=== PATIENT | female | born 1945 | race Caucasian/White ===

== ENCOUNTER 2021-08-01 08:54 | Inpatient (IN) | payer MEDICARE, MEDICAID ==
[~2021-08-01] VITALS: Ht 149.9 cm; Wt 94.1 kg
[2021-08-01 10:01] LABS: BASOPHILS % 0.3 % (0.0-2.0); EOSINOPHILS % 1.1 % (0.0-5.0); HEMATOCRIT. 47.6 % (36.0-48.0); HEMOGLOBIN. 15.4 g/dL (12.0-16.0); LYMPHOCYTES % 15.1 % (20.0-50.0); MEAN CORPUSCULAR HEMOGLOBIN 29.1 pg (28.0-32.0); MEAN CORPUSCULAR VOLUME 90.2 fL (81.0-99.0); MEAN PLATELET VOLUME 11.2 fl (7.4-10.4); MONOCYTES % 7.9 % (2.0-8.0); NEUTROPHILS % 75.6 % (40.0-76.0); PLATELET 159 x1000/uL (130-400); RED BLOOD CELL COUNT 5.28 mill/uL (4.2-5.4); RED CELL DISTRIBUTION WIDTH 16.6 % (11.6-14.6)
[2021-08-01 10:09] LABS: CHLORIDE 122 mEq/L (98-107)
[2021-08-01 10:13] LABS: ETHANOL BLOOD < 10 mg/dL
[2021-08-01 10:17] LABS: CREATINE KINASE 24 IU/L (26-192)
[2021-08-01] MEDS ORDERED: SODIUM CHLORIDE 0.45% 250 ML IV ONE (12:15)
[2021-08-01 14:13] LABS: CLARITY URINE CLEAR (CLEAR); COLOR URINE YELLOW (YELLOW); KETONES URINE TRACE (NEGATIVE); LEUKOCYTE ESTERASE URINE NEGATIVE (NEGATIVE); NITRITE URINE NEGATIVE (NEGATIVE); OCCULT BLOOD URINE NEGATIVE (NEGATIVE); PH URINE 6.5 (4.5-8.0); PROTEIN URINE NEGATIVE (NEGATIVE); SPECIFIC GRAVITY URINE 1.025 (1.005-1.030)
[2021-08-01 14:33] LABS: *AMPHETAMINES SCREEN URINE NEGATIVE (NEGATIVE)
[2021-08-01 14:34] LABS: *BARBITURATES SCREEN URINE NEGATIVE (NEGATIVE); CANNABINOID URINE SCREEN NEGATIVE (NEGATIVE); METHADONE URINE SCREEN NEGATIVE (NEGATIVE); OPIATES URINE SCREEN NEGATIVE (NEGATIVE); PHENCYCLIDINE URINE SCREEN NEGATIVE (NEGATIVE)
[2021-08-01 14:35] LABS: *BENZODIAZEPINES SCREEN URINE NEGATIVE (NEGATIVE)
[2021-08-01 14:38] LABS: *COCAINE SCREEN URINE NEGATIVE (NEGATIVE)
[2021-08-01] MEDS ORDERED: HYDRALAZINE 20MG/ML VIAL IV NR (16:15)
[2021-08-01] MEDS ORDERED: LEVOFLOXACIN 500MG PREMIX 100 ML IV SCH (16:15)
[2021-08-01] MEDS ORDERED: ACETAMINOPHEN 650MG SUPP PR PRN (17:00)
[2021-08-01] MEDS ORDERED: IPRATROPIUM/ALBUTEROL 0.5-3(2.5)MG/3ML NEB NEB PRN (17:00)
[2021-08-01] MEDS ORDERED: ONDANSETRON HCL 4MG/2ML INJ IV PRN (17:00)
[2021-08-01] MEDS ORDERED: MORPHINE SULFATE 2 MG/ML CPJ (NOT FOR IM USE) IV PRN (17:00)
[2021-08-01] MEDS: DEXTROSE 5% WATER 1,000 ML IV SCH (17:15)
[2021-08-01] MEDS ORDERED: DEXTROSE 50% WATER 50ML SYRINGE IV PRN (17:15)
[2021-08-01 17:33] LABS: PROTHROMBIN TIME 11.1 sec (9.6-11.0)
[2021-08-01] MEDS ORDERED: METRONIDAZOLE 500 MG PREMIX 100 ML IV SCH (18:00)
[2021-08-01 18:31] LABS: BG BASE EXCESS 1.2 mmol/L (-2.0-2.0); BG CARBOXYHEMOGLOBIN 0.4 % (0.5-1.5); BG DEOXYHEMOGLOBIN 3.1 % (0.0-5.0); BG FRACTION INSPIRED OXYGEN 21; BG HCO3 ACT 24.6 mmol/L (22.0-26.0); BG METHEMOGLOBIN 0.4 % (0.0-1.5); BG OXYGEN SATURATION 96.9 % (92.0-98.5); BG OXYHEMOGLOBIN 96.1 % (94.0-97.0); BG PCO2 35.5 mmHg (35.0-45.0); BG PH 7.458 (7.350-7.450); BG PO2 83.9 mmHg (75.0-100.0); BG SAMPLE SITE LEFT RADIAL; BG TOTAL HEMOGLOBIN 15.2 g/dL (12.0-18.0); BG VENT MODE ROOM AIR
[2021-08-01] MEDS: ENOXAPARIN 30MG/0.3ML SYR SUBCUT SCH (20:20)
[2021-08-01] MEDS: FAMOTIDINE 20MG/2ML VIAL IV SCH (20:20)
[2021-08-01] MEDS: INSULIN LISPRO 100 UNITS/ML SUBCUT SCH ×2 (20:21→21:00)
[2021-08-01] MEDS: BLOOD SUGAR DIAGNOSTIC STRIP TEST SCH (21:00)
[2021-08-01 21:39] VITALS: BP 166/89
[2021-08-01] MEDS: LORAZEPAM 2MG/ML CPJ IV PRN (22:25)
[2021-08-02] VITALS: BP 150/70
[2021-08-02] MEDS: DEXTROSE 5% WATER 1,000 ML IV SCH ×3 (02:24→22:03)
[2021-08-02 03:38] VITALS: BP 148/68
[2021-08-02] MEDS: METRONIDAZOLE 500 MG PREMIX 100 ML IV SCH ×3 (04:00→22:02)
[2021-08-02 06:45] LABS: BASOPHILS % 0.2 % (0.0-2.0); EOSINOPHILS % 1.7 % (0.0-5.0); HEMATOCRIT. 43.8 % (36.0-48.0); HEMOGLOBIN. 14.3 g/dL (12.0-16.0); LYMPHOCYTES % 17.4 % (20.0-50.0); MEAN CORPUSCULAR HEMOGLOBIN 29.4 pg (28.0-32.0); MEAN CORPUSCULAR VOLUME 90.1 fL (81.0-99.0); MEAN PLATELET VOLUME 11.7 fl (7.4-10.4); MONOCYTES % 8.3 % (2.0-8.0); NEUTROPHILS % 72.4 % (40.0-76.0); PLATELET 135 x1000/uL (130-400); RED BLOOD CELL COUNT 4.87 mill/uL (4.2-5.4)
[2021-08-02] MEDS: ENOXAPARIN 30MG/0.3ML SYR SUBCUT SCH (06:53)
[2021-08-02] MEDS: BLOOD SUGAR DIAGNOSTIC STRIP TEST SCH ×4 (06:53→21:00)
[2021-08-02] MEDS: INSULIN LISPRO 100 UNITS/ML SUBCUT SCH ×4 (06:53→21:00)
[2021-08-02 07:13] LABS: PROTHROMBIN TIME 11.1 sec (9.6-11.0)
[2021-08-02 07:14] LABS: CHLORIDE 118 mEq/L (98-107)
[2021-08-02 08:00] VITALS: BP 173/86
[2021-08-02] MEDS: HYDRALAZINE 20MG/ML VIAL IV PRN ×2 (09:44→16:08)
[2021-08-02] MEDS: FAMOTIDINE 20MG/2ML VIAL IV SCH (09:44)
[2021-08-02 12:00] VITALS: BP 163/70
[2021-08-02] MEDS: IPRATROPIUM/ALBUTEROL 0.5-3(2.5)MG/3ML NEB NEB SCH ×2 (12:15→20:45)
[2021-08-02] MEDS: LEVOFLOXACIN 500MG PREMIX 100 ML IV SCH (13:31)
[2021-08-02] MEDS: NITROGLYCERIN OINT 1GM/INCH UDPKT TD SCH ×2 (14:08→22:03)
[2021-08-02 16:00] VITALS: BP 164/68
[2021-08-02 20:00] VITALS: BP 151/68
[2021-08-02] MEDS: LORAZEPAM 2MG/ML CPJ IV PRN (22:59)
[2021-08-03] VITALS: BP 117/53
[2021-08-03] MEDS: IPRATROPIUM/ALBUTEROL 0.5-3(2.5)MG/3ML NEB NEB SCH ×4 (01:15→21:46)
[2021-08-03 04:00] VITALS: BP 115/50
[2021-08-03] MEDS: METRONIDAZOLE 500 MG PREMIX 100 ML IV SCH ×3 (04:42→20:00)
[2021-08-03 06:27] LABS: BASOPHILS % 0.2 % (0.0-2.0); EOSINOPHILS % 0.5 % (0.0-5.0); HEMATOCRIT. 42.2 % (36.0-48.0); HEMOGLOBIN. 13.5 g/dL (12.0-16.0); LYMPHOCYTES % 10.2 % (20.0-50.0); MEAN CORPUSCULAR HEMOGLOBIN 29.2 pg (28.0-32.0); MEAN CORPUSCULAR VOLUME 91.1 fL (81.0-99.0); MEAN PLATELET VOLUME 11.1 fl (7.4-10.4); MONOCYTES % 8.2 % (2.0-8.0); NEUTROPHILS % 80.9 % (40.0-76.0); PLATELET 132 x1000/uL (130-400); RED BLOOD CELL COUNT 4.64 mill/uL (4.2-5.4); RED CELL DISTRIBUTION WIDTH 15.9 % (11.6-14.6)
[2021-08-03 06:30] LABS: PROTHROMBIN TIME 11.2 sec (9.6-11.0)
[2021-08-03] MEDS: BLOOD SUGAR DIAGNOSTIC STRIP TEST SCH ×4 (06:36→21:00)
[2021-08-03] MEDS: NITROGLYCERIN OINT 1GM/INCH UDPKT TD SCH ×3 (06:46→22:10)
[2021-08-03 07:00] LABS: CHLORIDE 113 mEq/L (98-107)
[2021-08-03] MEDS: INSULIN LISPRO 100 UNITS/ML SUBCUT SCH ×4 (07:40→21:00)
[2021-08-03 08:00] VITALS: BP 136/61
[2021-08-03] MEDS: FAMOTIDINE 20MG/2ML VIAL IV SCH (08:53)
[2021-08-03] MEDS: DEXTROSE 5% WATER 1,000 ML IV SCH ×2 (08:53→19:15)
[2021-08-03] MEDS ORDERED: PROPOFOL 200MG/20ML VIAL IV ONE (10:37)
[2021-08-03] MEDS ORDERED: FENTANYL CITRATE/PF 50MCG/ML 2ML VIAL ONE (10:40)
[2021-08-03] MEDS ORDERED: LIDOCAINE HCL 1% 20ML VIAL (Pyxis) INJ ONE (10:40)
[2021-08-03] MEDS ORDERED: ONDANSETRON HCL 4MG/2ML INJ ONE (10:40)
[2021-08-03] MEDS ORDERED: DEXAMETHASONE 4MG/ML 1ML VIAL ONE (10:40)
[2021-08-03] MEDS ORDERED: MIDAZOLAM HCL 2 MG/2 ML VIAL ONE (10:41)
[2021-08-03] MEDS ORDERED: KCL 20MEQ/100ML PREMIX 100 ML IV SCH (11:00)
[2021-08-03 12:00] VITALS: BP 169/78
[2021-08-03] MEDS: LEVOFLOXACIN 500MG PREMIX 100 ML IV SCH (12:40)
[2021-08-03] MEDS: HYDRALAZINE 20MG/ML VIAL IV PRN (13:06)
[2021-08-03 16:00] VITALS: BP 136/61
[2021-08-03 20:00] VITALS: BP 140/66
[2021-08-03] MEDS ORDERED: NALOXONE HCL 0.4MG/ML VIAL IV PRN (23:15)
[2021-08-04] VITALS: BP 138/76
[2021-08-04] MEDS: IPRATROPIUM/ALBUTEROL 0.5-3(2.5)MG/3ML NEB NEB SCH ×4 (02:45→20:37)
[2021-08-04 04:00] VITALS: BP 135/81
[2021-08-04] MEDS: METRONIDAZOLE 500 MG PREMIX 100 ML IV SCH ×3 (04:00→20:00)
[2021-08-04] MEDS: DEXTROSE 5% WATER 1,000 ML IV SCH ×2 (05:15→15:15)
[2021-08-04] MEDS: NITROGLYCERIN OINT 1GM/INCH UDPKT TD SCH ×3 (07:08→22:36)
[2021-08-04] MEDS: BLOOD SUGAR DIAGNOSTIC STRIP TEST SCH ×4 (07:10→21:00)
[2021-08-04 07:32] LABS: EOSINOPHILS % 0.1 % (0.0-5.0); HEMATOCRIT. 42.8 % (36.0-48.0); HEMOGLOBIN. 13.8 g/dL (12.0-16.0); LYMPHOCYTES % 7.2 % (20.0-50.0); MEAN CORPUSCULAR HEMOGLOBIN 29.4 pg (28.0-32.0); MEAN CORPUSCULAR VOLUME 90.6 fL (81.0-99.0); MEAN PLATELET VOLUME 11.1 fl (7.4-10.4); NEUTROPHILS % 85.7 % (40.0-76.0); PLATELET 127 x1000/uL (130-400); RED BLOOD CELL COUNT 4.72 mill/uL (4.2-5.4); RED CELL DISTRIBUTION WIDTH 16.1 % (11.6-14.6)
[2021-08-04] MEDS: INSULIN LISPRO 100 UNITS/ML SUBCUT SCH ×4 (07:40→22:35)
[2021-08-04 07:43] LABS: CHLORIDE 111 mEq/L (98-107)
[2021-08-04 08:00] VITALS: BP 129/66
[2021-08-04] MEDS: FAMOTIDINE 20MG/2ML VIAL IV SCH (09:00)
[2021-08-04] MEDS: LEVOFLOXACIN 500MG PREMIX 100 ML IV SCH (11:00)
[2021-08-04 12:00] VITALS: BP 135/63
[2021-08-04 16:00] VITALS: BP 105/69
[2021-08-04 20:00] VITALS: BP 123/60
[2021-08-05] VITALS: BP 12/66
[2021-08-05] MEDS: DEXTROSE 5% WATER 1,000 ML IV SCH ×3 (01:15→20:54)
[2021-08-05] MEDS: IPRATROPIUM/ALBUTEROL 0.5-3(2.5)MG/3ML NEB NEB SCH ×4 (02:17→20:01)
[2021-08-05 04:00] VITALS: BP 143/71
[2021-08-05] MEDS: METRONIDAZOLE 500 MG PREMIX 100 ML IV SCH ×3 (04:00→20:00)
[2021-08-05] MEDS: BLOOD SUGAR DIAGNOSTIC STRIP TEST SCH ×4 (06:42→21:42)
[2021-08-05] MEDS: NITROGLYCERIN OINT 1GM/INCH UDPKT TD SCH ×3 (07:01→21:42)
[2021-08-05] MEDS: INSULIN LISPRO 100 UNITS/ML SUBCUT SCH ×4 (07:03→21:49)
[2021-08-05 08:00] VITALS: BP 157/68
[2021-08-05] MEDS: FAMOTIDINE 20MG/2ML VIAL IV SCH (08:42)
[2021-08-05] MEDS: LEVOFLOXACIN 500MG PREMIX 100 ML IV SCH (11:00)
[2021-08-05 12:00] VITALS: BP 133/66
[2021-08-05 16:00] VITALS: BP 145/72
[2021-08-05 20:00] VITALS: BP 138/62
[2021-08-06] VITALS: BP 142/65
[2021-08-06] MEDS: IPRATROPIUM/ALBUTEROL 0.5-3(2.5)MG/3ML NEB NEB SCH ×5 (01:49→23:00)
[2021-08-06 04:00] VITALS: BP 168/78
[2021-08-06] MEDS: NITROGLYCERIN OINT 1GM/INCH UDPKT TD SCH ×3 (05:54→22:29)
[2021-08-06] MEDS: BLOOD SUGAR DIAGNOSTIC STRIP TEST SCH ×4 (05:54→21:00)
[2021-08-06] MEDS: INSULIN LISPRO 100 UNITS/ML SUBCUT SCH ×4 (06:17→22:30)
[2021-08-06] MEDS: DEXTROSE 5% WATER 1,000 ML IV SCH (07:07)
[2021-08-06 08:00] VITALS: BP 152/83
[2021-08-06] MEDS: FAMOTIDINE 20MG/2ML VIAL IV SCH (08:12)
[2021-08-06] MEDS ORDERED: CLONIDINE 0.1MG TABLET PO PRN (09:45)
[2021-08-06] MEDS: ACETAMINOPHEN 650MG/20.3ML UDC PO PRN ×2 (10:33→16:54)
[2021-08-06 12:00] VITALS: BP 144/70
[2021-08-06 15:07] LABS: CHLORIDE 113 mEq/L (98-107)
[2021-08-06 15:19] LABS: BASOPHILS % 0.1 % (0.0-2.0); EOSINOPHILS % 0.8 % (0.0-5.0); HEMOGLOBIN. 13.8 g/dL (12.0-16.0); LYMPHOCYTES % 13.5 % (20.0-50.0); MEAN CORPUSCULAR HEMOGLOBIN 29.2 pg (28.0-32.0); MEAN PLATELET VOLUME 11.6 fl (7.4-10.4); MONOCYTES % 9.9 % (2.0-8.0); NEUTROPHILS % 75.7 % (40.0-76.0); PLATELET 122 x1000/uL (130-400); RED BLOOD CELL COUNT 4.72 mill/uL (4.2-5.4); RED CELL DISTRIBUTION WIDTH 16.8 % (11.6-14.6)
[2021-08-06 20:00] VITALS: BP 143/69
[2021-08-06] MEDS: LEVOFLOXACIN 500MG TABLET GT SCH (22:29)
[2021-08-07] VITALS: BP 138/70
[2021-08-07] MEDS: METRONIDAZOLE 500MG TABLET GT SCH ×3 (00:42→12:00)
[2021-08-07 04:00] VITALS: BP 144/67
[2021-08-07 07:07] LABS: BASOPHILS % 0.1 % (0.0-2.0); EOSINOPHILS % 1.3 % (0.0-5.0); HEMATOCRIT. 43.1 % (36.0-48.0); LYMPHOCYTES % 10.6 % (20.0-50.0); MEAN CORPUSCULAR HEMOGLOBIN 29.3 pg (28.0-32.0); MEAN CORPUSCULAR VOLUME 90.2 fL (81.0-99.0); MEAN PLATELET VOLUME 11.6 fl (7.4-10.4); MONOCYTES % 8.8 % (2.0-8.0); NEUTROPHILS % 79.2 % (40.0-76.0); PLATELET 123 x1000/uL (130-400); RED BLOOD CELL COUNT 4.78 mill/uL (4.2-5.4); RED CELL DISTRIBUTION WIDTH 16.6 % (11.6-14.6)
[2021-08-07] MEDS: BLOOD SUGAR DIAGNOSTIC STRIP TEST SCH ×4 (07:15→21:00)
[2021-08-07] MEDS: NITROGLYCERIN OINT 1GM/INCH UDPKT TD SCH ×3 (07:15→20:46)
[2021-08-07 07:16] LABS: CHLORIDE 111 mEq/L (98-107)
[2021-08-07 07:28] LABS: CLARITY URINE CLEAR (CLEAR); COLOR URINE YELLOW (YELLOW); KETONES URINE 1+ (NEGATIVE); LEUKOCYTE ESTERASE URINE NEGATIVE (NEGATIVE); NITRITE URINE NEGATIVE (NEGATIVE); OCCULT BLOOD URINE NEGATIVE (NEGATIVE); PH URINE 7.5 (4.5-8.0); PROTEIN URINE NEGATIVE (NEGATIVE); SPECIFIC GRAVITY URINE 1.034 (1.005-1.030)
[2021-08-07] MEDS: INSULIN LISPRO 100 UNITS/ML SUBCUT SCH ×3 (07:40→21:00)
[2021-08-07] MEDS: IPRATROPIUM/ALBUTEROL 0.5-3(2.5)MG/3ML NEB NEB SCH ×3 (07:42→21:02)
[2021-08-07 08:00] VITALS: BP 162/65
[2021-08-07] MEDS ORDERED: LIDOCAINE HCL 1% 20ML VIAL (Pyxis) INJ ONE (08:31)
[2021-08-07] MEDS: AMLODIPINE 10MG TABLET PO SCH (09:00)
[2021-08-07] MEDS: FAMOTIDINE 20MG/2ML VIAL IV SCH (09:00)
[2021-08-07] MEDS: LEVOFLOXACIN 500MG TABLET GT SCH (11:00)
[2021-08-07 12:00] VITALS: BP 132/58
[2021-08-07 16:00] VITALS: BP 127/62
[2021-08-07] MEDS: SODIUM CHLORIDE 0.45% 1,000 ML IV SCH (16:30)
[2021-08-07] MEDS: LOSARTAN POTASSIUM 50 MG TABLET PO SCH (17:00)
[2021-08-07 20:00] VITALS: BP 146/81
[2021-08-07] MEDS: METRONIDAZOLE 500 MG PREMIX 100 ML IV SCH (20:21)
[2021-08-07] MEDS: LEVOFLOXACIN 500MG PREMIX 100 ML IV SCH (22:39)
[2021-08-08] VITALS: BP 129/58
[2021-08-08] MEDS: IPRATROPIUM/ALBUTEROL 0.5-3(2.5)MG/3ML NEB NEB SCH ×4 (01:04→21:38)
[2021-08-08] MEDS: METRONIDAZOLE 500 MG PREMIX 100 ML IV SCH ×4 (02:41→17:16)
[2021-08-08 04:00] VITALS: BP 127/60
[2021-08-08 06:25] LABS: BG BASE EXCESS -3.6 mmol/L (-2.0-2.0); BG CARBOXYHEMOGLOBIN 0.2 % (0.5-1.5); BG DEOXYHEMOGLOBIN 2.6 % (0.0-5.0); BG METHEMOGLOBIN 0.3 % (0.0-1.5); BG OXYGEN SATURATION 97.4 % (92.0-98.5); BG OXYHEMOGLOBIN 96.9 % (94.0-97.0); BG PCO2 36.9 mmHg (35.0-45.0); BG PH 7.373 (7.350-7.450); BG PO2 93.2 mmHg (75.0-100.0); BG SAMPLE SITE RIGHT RADIAL; BG TOTAL HEMOGLOBIN 15.4 g/dL (12.0-18.0); BG VENT MODE NASAL CANNULA
[2021-08-08] MEDS: BLOOD SUGAR DIAGNOSTIC STRIP TEST SCH ×4 (06:27→21:54)
[2021-08-08] MEDS: INSULIN LISPRO 100 UNITS/ML SUBCUT SCH ×4 (06:27→21:52)
[2021-08-08] MEDS: NITROGLYCERIN OINT 1GM/INCH UDPKT TD SCH ×3 (06:27→21:53)
[2021-08-08 07:01] LABS: BASOPHILS % 0.1 % (0.0-2.0); EOSINOPHILS % 0.1 % (0.0-5.0); HEMATOCRIT. 42.1 % (36.0-48.0); HEMOGLOBIN. 13.7 g/dL (12.0-16.0); LYMPHOCYTES % 7.1 % (20.0-50.0); MEAN CORPUSCULAR HEMOGLOBIN 29.9 pg (28.0-32.0); MEAN CORPUSCULAR VOLUME 91.8 fL (81.0-99.0); MEAN PLATELET VOLUME 11.1 fl (7.4-10.4); MONOCYTES % 9.8 % (2.0-8.0); NEUTROPHILS % 82.9 % (40.0-76.0); PLATELET 121 x1000/uL (130-400); RED BLOOD CELL COUNT 4.59 mill/uL (4.2-5.4); RED CELL DISTRIBUTION WIDTH 17.1 % (11.6-14.6)
[2021-08-08 07:23] LABS: CHLORIDE 109 mEq/L (98-107)
[2021-08-08 08:00] VITALS: BP 125/58
[2021-08-08] MEDS: AMLODIPINE 10MG TABLET PO SCH (09:00)
[2021-08-08] MEDS: FAMOTIDINE 20MG/2ML VIAL IV SCH (09:02)
[2021-08-08] MEDS: SODIUM CHLORIDE 0.45% 1,000 ML IV SCH (09:02)
[2021-08-08] MEDS ORDERED: INSULIN GLARGINE 100 UNITS/ML SUBCUT NR (11:30)
[2021-08-08 12:00] VITALS: BP 128/61
[2021-08-08 16:00] VITALS: BP 144/62
[2021-08-08] MEDS: LOSARTAN POTASSIUM 50 MG TABLET PO SCH (17:00)
[2021-08-08] MEDS ORDERED: INSULIN LISPRO 100 UNITS/ML SUBCUT NR (17:21)
[2021-08-08 20:00] VITALS: BP 151/62
[2021-08-08] MEDS: LEVOFLOXACIN 500MG PREMIX 100 ML IV SCH (21:54)
[2021-08-08] MEDS: INSULIN GLARGINE 100 UNITS/ML SUBCUT SCH (23:23)
[2021-08-09] VITALS (8 sets, daily range): BP systolic 128–177; BP diastolic 57–80
[2021-08-09] MEDS: IPRATROPIUM/ALBUTEROL 0.5-3(2.5)MG/3ML NEB NEB SCH ×4 (01:47→21:19)
[2021-08-09] MEDS: METRONIDAZOLE 500 MG PREMIX 100 ML IV SCH ×3 (02:25→18:03)
[2021-08-09] MEDS: NITROGLYCERIN OINT 1GM/INCH UDPKT TD SCH ×3 (05:49→22:48)
[2021-08-09] MEDS: SODIUM CHLORIDE 0.45% 1,000 ML IV SCH ×2 (05:51→18:02)
[2021-08-09] MEDS: INSULIN LISPRO 100 UNITS/ML SUBCUT SCH ×4 (05:52→20:44)
[2021-08-09 07:15] LABS: BASOPHILS % 0.1 % (0.0-2.0); EOSINOPHILS % 0.8 % (0.0-5.0); HEMATOCRIT. 39.8 % (36.0-48.0); HEMOGLOBIN. 13.1 g/dL (12.0-16.0); LYMPHOCYTES % 9.7 % (20.0-50.0); MEAN CORPUSCULAR HEMOGLOBIN 29.7 pg (28.0-32.0); MEAN CORPUSCULAR VOLUME 90.4 fL (81.0-99.0); MEAN PLATELET VOLUME 10.7 fl (7.4-10.4); MONOCYTES % 10.5 % (2.0-8.0); NEUTROPHILS % 78.9 % (40.0-76.0); PLATELET 116 x1000/uL (130-400); RED CELL DISTRIBUTION WIDTH 16.5 % (11.6-14.6)
[2021-08-09] MEDS: BLOOD SUGAR DIAGNOSTIC STRIP TEST SCH ×4 (07:17→20:44)
[2021-08-09 07:26] LABS: CHLORIDE 112 mEq/L (98-107)
[2021-08-09] MEDS: FAMOTIDINE 20MG/2ML VIAL IV SCH (08:14)
[2021-08-09] MEDS: AMLODIPINE 10MG TABLET PO SCH (08:15)
[2021-08-09] MEDS: INSULIN GLARGINE 100 UNITS/ML SUBCUT SCH ×2 (09:10→22:00)
[2021-08-09 09:32] LABS: BG BASE EXCESS 0.5 mmol/L (-2.0-2.0); BG CARBOXYHEMOGLOBIN 0.2 % (0.5-1.5); BG FRACTION INSPIRED OXYGEN 21; BG HCO3 ACT 24.2 mmol/L (22.0-26.0); BG METHEMOGLOBIN 0.4 % (0.0-1.5); BG OXYHEMOGLOBIN 92.4 % (94.0-97.0); BG PCO2 35.9 mmHg (35.0-45.0); BG PH 7.446 (7.350-7.450); BG PO2 61.4 mmHg (75.0-100.0); BG SAMPLE SITE LEFT RADIAL; BG TOTAL HEMOGLOBIN 13.9 g/dL (12.0-18.0); BG VENT MODE ROOM AIR
[2021-08-09] MEDS ORDERED: PROPOFOL 200MG/20ML VIAL IV ONE ×2 (15:34→15:50)
[2021-08-09] MEDS ORDERED: LIDOCAINE HCL 1% 20ML VIAL (Pyxis) INJ ONE (15:59)
[2021-08-09 16:23] LABS: INR 1.1; PROTHROMBIN TIME 11.3 sec (9.6-11.0)
[2021-08-09] MEDS: LOSARTAN POTASSIUM 50 MG TABLET PO SCH (17:00)
[2021-08-09] MEDS: HYDRALAZINE 20MG/ML VIAL IV PRN (18:02)
[2021-08-09] MEDS: LEVOFLOXACIN 500MG PREMIX 100 ML IV SCH (22:18)
[2021-08-10] VITALS: BP 137/63
[2021-08-10] MEDS: IPRATROPIUM/ALBUTEROL 0.5-3(2.5)MG/3ML NEB NEB SCH ×4 (02:51→21:33)
[2021-08-10 04:00] VITALS: BP 147/68
[2021-08-10] MEDS: METRONIDAZOLE 500 MG PREMIX 100 ML IV SCH ×3 (04:27→16:41)
[2021-08-10] MEDS: SODIUM CHLORIDE 0.45% 1,000 ML IV SCH (04:28)
[2021-08-10] MEDS: NITROGLYCERIN OINT 1GM/INCH UDPKT TD SCH ×3 (06:00→21:59)
[2021-08-10] MEDS: INSULIN LISPRO 100 UNITS/ML SUBCUT SCH ×4 (06:38→21:58)
[2021-08-10] MEDS: BLOOD SUGAR DIAGNOSTIC STRIP TEST SCH ×4 (06:38→21:00)
[2021-08-10 07:08] LABS: BASOPHILS % 0.2 % (0.0-2.0); EOSINOPHILS % 0.9 % (0.0-5.0); HEMATOCRIT. 40.2 % (36.0-48.0); HEMOGLOBIN. 13.4 g/dL (12.0-16.0); LYMPHOCYTES % 10.3 % (20.0-50.0); MEAN CORPUSCULAR HEMOGLOBIN 29.8 pg (28.0-32.0); MEAN CORPUSCULAR VOLUME 89.5 fL (81.0-99.0); MEAN PLATELET VOLUME 10.8 fl (7.4-10.4); MONOCYTES % 10.7 % (2.0-8.0); NEUTROPHILS % 77.9 % (40.0-76.0); PLATELET 115 x1000/uL (130-400); RED BLOOD CELL COUNT 4.49 mill/uL (4.2-5.4); RED CELL DISTRIBUTION WIDTH 16.1 % (11.6-14.6)
[2021-08-10 07:14] LABS: CHLORIDE 110 mEq/L (98-107)
[2021-08-10 07:59] VITALS: BP 171/74
[2021-08-10] MEDS: AMLODIPINE 10MG TABLET PO SCH (08:25)
[2021-08-10] MEDS: FAMOTIDINE 20MG/2ML VIAL IV SCH (08:25)
[2021-08-10] MEDS: HYDRALAZINE 20MG/ML VIAL IV PRN (08:25)
[2021-08-10] MEDS: INSULIN GLARGINE 100 UNITS/ML SUBCUT SCH ×2 (10:20→21:59)
[2021-08-10] MEDS ORDERED: POTASSIUM CHLORIDE INJ 40 MEQ in DEXT 5% WATER 250 ML IV ONE (11:30)
[2021-08-10 11:45] VITALS: BP 151/69
[2021-08-10] MEDS: KCL 20MEQ/100ML X 2 FOR TOTAL KCL 40MEQ/200ML IV SCH ×2 (11:51→14:22)
[2021-08-10 15:17] VITALS: BP 132/64
[2021-08-10] MEDS: LOSARTAN POTASSIUM 50 MG TABLET PO SCH (16:46)
[2021-08-10 20:00] VITALS: BP 153/67
[2021-08-10] MEDS: LEVOFLOXACIN 500MG PREMIX 100 ML IV SCH (21:59)
[2021-08-10] MEDS: MUPIROCIN 2% OINT 22GM TOP SCH (23:11)
[2021-08-11] VITALS: BP 132/60
[2021-08-11] MEDS: IPRATROPIUM/ALBUTEROL 0.5-3(2.5)MG/3ML NEB NEB SCH ×5 (01:35→23:00)
[2021-08-11] MEDS: METRONIDAZOLE 500 MG PREMIX 100 ML IV SCH ×3 (01:40→16:50)
[2021-08-11] MEDS: SODIUM CHLORIDE 0.45% 1,000 ML IV SCH ×2 (01:41→21:35)
[2021-08-11 04:00] VITALS: BP 152/70
[2021-08-11] MEDS: BLOOD SUGAR DIAGNOSTIC STRIP TEST SCH ×4 (05:51→21:00)
[2021-08-11] MEDS: MUPIROCIN 2% OINT 22GM TOP SCH ×3 (06:07→21:20)
[2021-08-11] MEDS: NITROGLYCERIN OINT 1GM/INCH UDPKT TD SCH ×3 (06:08→21:20)
[2021-08-11] MEDS: INSULIN LISPRO 100 UNITS/ML SUBCUT SCH ×4 (06:15→21:23)
[2021-08-11 07:56] VITALS: BP 172/79
[2021-08-11] MEDS: HYDRALAZINE 20MG/ML VIAL IV PRN (08:18)
[2021-08-11] MEDS: AMLODIPINE 10MG TABLET PO SCH (08:19)
[2021-08-11] MEDS: FAMOTIDINE 20MG/2ML VIAL IV SCH (08:19)
[2021-08-11 10:02] LABS: BASOPHILS % 0.2 % (0.0-2.0); EOSINOPHILS % 0.7 % (0.0-5.0); HEMATOCRIT. 41.2 % (36.0-48.0); HEMOGLOBIN. 13.8 g/dL (12.0-16.0); LYMPHOCYTES % 10.7 % (20.0-50.0); MEAN CORPUSCULAR HEMOGLOBIN 29.5 pg (28.0-32.0); MEAN CORPUSCULAR VOLUME 88.4 fL (81.0-99.0); MEAN PLATELET VOLUME 10.9 fl (7.4-10.4); MONOCYTES % 9.3 % (2.0-8.0); NEUTROPHILS % 79.1 % (40.0-76.0); PLATELET 126 x1000/uL (130-400); RED BLOOD CELL COUNT 4.66 mill/uL (4.2-5.4); RED CELL DISTRIBUTION WIDTH 16.1 % (11.6-14.6)
[2021-08-11 10:03] LABS: CHLORIDE 108 mEq/L (98-107)
[2021-08-11] MEDS ORDERED: ENALAPRIL 1.25MG/ML VIAL 1ML IV PRN (10:30)
[2021-08-11] MEDS: INSULIN GLARGINE 100 UNITS/ML SUBCUT SCH ×2 (10:40→21:23)
[2021-08-11] MEDS: KCL 20MEQ/100ML PREMIX 100 ML IV SCH ×2 (12:57→14:06)
[2021-08-11 13:16] VITALS: BP 123/52
[2021-08-11 15:55] VITALS: BP 127/61
[2021-08-11] MEDS: LOSARTAN POTASSIUM 50 MG TABLET PO SCH (16:04)
[2021-08-11 20:00] VITALS: BP 118/69
[2021-08-11] MEDS: LEVOFLOXACIN 500MG PREMIX 100 ML IV SCH (21:19)
[2021-08-12] VITALS: BP 119/51
[2021-08-12] MEDS: METRONIDAZOLE 500 MG PREMIX 100 ML IV SCH ×3 (02:11→17:00)
[2021-08-12 04:00] VITALS: BP 149/85
[2021-08-12] MEDS: BLOOD SUGAR DIAGNOSTIC STRIP TEST SCH ×4 (06:12→21:00)
[2021-08-12] MEDS: NITROGLYCERIN OINT 1GM/INCH UDPKT TD SCH ×3 (06:14→22:14)
[2021-08-12] MEDS: MUPIROCIN 2% OINT 22GM TOP SCH ×3 (06:15→22:13)
[2021-08-12] MEDS: INSULIN LISPRO 100 UNITS/ML SUBCUT SCH ×4 (07:01→22:16)
[2021-08-12] MEDS: IPRATROPIUM/ALBUTEROL 0.5-3(2.5)MG/3ML NEB NEB SCH ×3 (07:49→20:50)
[2021-08-12 07:58] VITALS: BP 157/74
[2021-08-12 08:17] LABS: BASOPHILS % 0.2 % (0.0-2.0); EOSINOPHILS % 0.8 % (0.0-5.0); HEMATOCRIT. 38.5 % (36.0-48.0); HEMOGLOBIN. 12.9 g/dL (12.0-16.0); LYMPHOCYTES % 15.1 % (20.0-50.0); MEAN CORPUSCULAR HEMOGLOBIN 29.8 pg (28.0-32.0); MEAN CORPUSCULAR VOLUME 88.8 fL (81.0-99.0); MEAN PLATELET VOLUME 10.7 fl (7.4-10.4); MONOCYTES % 9.5 % (2.0-8.0); NEUTROPHILS % 74.4 % (40.0-76.0); PLATELET 126 x1000/uL (130-400); RED BLOOD CELL COUNT 4.34 mill/uL (4.2-5.4); RED CELL DISTRIBUTION WIDTH 16.3 % (11.6-14.6)
[2021-08-12] MEDS: AMLODIPINE 10MG TABLET PO SCH (08:25)
[2021-08-12] MEDS: FAMOTIDINE 20MG/2ML VIAL IV SCH (08:26)
[2021-08-12 08:28] LABS: CHLORIDE 107 mEq/L (98-107)
[2021-08-12] MEDS: INSULIN GLARGINE 100 UNITS/ML SUBCUT SCH ×2 (09:32→22:17)
[2021-08-12] MEDS ORDERED: POTASSIUM CHLORIDE INJ 40 MEQ in DEXT 5% WATER 250 ML IV ONE (10:45)
[2021-08-12 11:37] VITALS: BP 171/72
[2021-08-12] MEDS: HYDRALAZINE 20MG/ML VIAL IV PRN (11:44)
[2021-08-12] MEDS: SODIUM CHLORIDE 0.45% 1,000 ML IV SCH (11:45)
[2021-08-12] MEDS: KCL 20MEQ/100ML X 2 FOR TOTAL KCL 40MEQ/200ML IV SCH ×2 (12:33→14:19)
[2021-08-12] MEDS: LORAZEPAM 2MG/ML CPJ IV PRN ×2 (14:41→22:14)
[2021-08-12] MEDS ORDERED: MORPHINE SULFATE 2 MG/ML CPJ (NOT FOR IM USE) IV PRN (14:45)
[2021-08-12 15:37] VITALS: BP 144/76
[2021-08-12] MEDS: LOSARTAN POTASSIUM 50 MG TABLET PO SCH (15:50)
[2021-08-12] MEDS ORDERED: VANCOMYCIN 1.5GM PMX (XELLIA) 300 ML IV NR (18:00)
[2021-08-12] MEDS ORDERED: NALOXONE HCL 0.4MG/ML VIAL IV PRN (19:15)
[2021-08-12 20:00] VITALS: BP 154/79
[2021-08-12] MEDS: LEVOFLOXACIN 500MG PREMIX 100 ML IV SCH (22:13)
[2021-08-13] VITALS: BP 128/80
[2021-08-13] MEDS: IPRATROPIUM/ALBUTEROL 0.5-3(2.5)MG/3ML NEB NEB SCH ×3 (01:07→22:11)
[2021-08-13 04:00] VITALS: BP 150/70
[2021-08-13] MEDS: BLOOD SUGAR DIAGNOSTIC STRIP TEST SCH ×4 (06:51→21:27)
[2021-08-13] MEDS: MUPIROCIN 2% OINT 22GM TOP SCH ×3 (06:51→21:32)
[2021-08-13] MEDS: NITROGLYCERIN OINT 1GM/INCH UDPKT TD SCH ×3 (06:51→21:32)
[2021-08-13 06:52] LABS: HEMATOCRIT. 38.4 % (36.0-48.0); HEMOGLOBIN. 12.7 g/dL (12.0-16.0); MEAN CORPUSCULAR HEMOGLOBIN 29.5 pg (28.0-32.0); MEAN CORPUSCULAR VOLUME 89.4 fL (81.0-99.0); MEAN PLATELET VOLUME 10.7 fl (7.4-10.4); PLATELET 121 x1000/uL (130-400); RED BLOOD CELL COUNT 4.29 mill/uL (4.2-5.4); RED CELL DISTRIBUTION WIDTH 16.3 % (11.6-14.6)
[2021-08-13] MEDS: INSULIN LISPRO 100 UNITS/ML SUBCUT SCH ×4 (06:55→21:00)
[2021-08-13 07:53] LABS: CHLORIDE 107 mEq/L (98-107)
[2021-08-13] MEDS: AMLODIPINE 10MG TABLET PO SCH (09:00)
[2021-08-13] MEDS ORDERED: LIDOCAINE HCL 1% 20ML VIAL (Pyxis) INJ ONE (09:15)
[2021-08-13] MEDS ORDERED: BUPIVACAINE HCL/PF 0.5% (5MG/ML) 30ML ONE (09:15)
[2021-08-13] MEDS: INSULIN GLARGINE 100 UNITS/ML SUBCUT SCH ×2 (10:00→22:51)
[2021-08-13] MEDS ORDERED: CALCIUM CHLORIDE 1GM/10ML SYR IV ONE (10:46)
[2021-08-13] MEDS ORDERED: ROCURONIUM BROMIDE 10MG/ML VIAL 5ML IV ONE (10:51)
[2021-08-13] MEDS ORDERED: EPHEDRINE SULFATE 50MG/ML VIAL ONE (11:17)
[2021-08-13 11:19] LABS: PLATELET ESTIMATE SLIGHTLY DECREASED
[2021-08-13] MEDS ORDERED: POLYMYXIN B SULFATE 500000 UNITS/VIAL ONE (11:38)
[2021-08-13] MEDS ORDERED: MORPHINE SULFATE 2 MG/ML CPJ (NOT FOR IM USE) IV PRN (12:15)
[2021-08-13] MEDS ORDERED: HYDROCODONE/ACETAMINOPHEN 5/325MG TABLET PO PRN (12:15)
[2021-08-13 13:48] LABS: BG BASE EXCESS -9.3 mmol/L (-2.0-2.0); BG CARBOXYHEMOGLOBIN 0.1 % (0.5-1.5); BG DEOXYHEMOGLOBIN 1.2 % (0.0-5.0); BG FRACTION INSPIRED OXYGEN 50; BG HCO3 ACT 16.1 mmol/L (22.0-26.0); BG METHEMOGLOBIN 0.2 % (0.0-1.5); BG OXYGEN SATURATION 98.8 % (92.0-98.5); BG OXYHEMOGLOBIN 98.5 % (94.0-97.0); BG PCO2 33.8 mmHg (35.0-45.0); BG PH 7.295 (7.350-7.450); BG PO2 144.1 mmHg (75.0-100.0); BG SAMPLE SITE RIGHT RADIAL; BG TOTAL HEMOGLOBIN 15.3 g/dL (12.0-18.0); BG VENT MODE MASK - SIMPLE
[2021-08-13] MEDS ORDERED: SODIUM BICARBONATE 8.4% 1 MEQ/ML 50ML SYR IV NR (14:15)
[2021-08-13 15:07] LABS: BG BASE EXCESS -2.6 mmol/L (-2.0-2.0); BG CARBOXYHEMOGLOBIN 0.6 % (0.5-1.5); BG DEOXYHEMOGLOBIN 1.4 % (0.0-5.0); BG FRACTION INSPIRED OXYGEN 32; BG HCO3 ACT 22.1 mmol/L (22.0-26.0); BG METHEMOGLOBIN 0.4 % (0.0-1.5); BG OXYGEN SATURATION 98.6 % (92.0-98.5); BG OXYHEMOGLOBIN 97.6 % (94.0-97.0); BG PH 7.382 (7.350-7.450); BG PO2 116.6 mmHg (75.0-100.0); BG SAMPLE SITE RIGHT RADIAL; BG TOTAL HEMOGLOBIN 15.1 g/dL (12.0-18.0); BG VENT MODE NASAL CANNULA
[2021-08-13 15:42] VITALS: BP 121/60
[2021-08-13] MEDS: LOSARTAN POTASSIUM 50 MG TABLET PO SCH (16:45)
[2021-08-13] MEDS ORDERED: VANCOMYCIN 750MG PMX (XELLIA) 150 ML IV SCH (17:00)
[2021-08-13] MEDS: FAMOTIDINE 20MG/2ML VIAL IV SCH (17:54)
[2021-08-13] MEDS: KETOROLAC 30MG/ML VIAL IV SCH ×2 (17:55→18:00)
[2021-08-13] MEDS ORDERED: VANCOMYCIN 1GM PMX (XELLIA) 200 ML IV SCH (18:00)
[2021-08-13 20:00] VITALS: BP 137/82
[2021-08-13] MEDS: SODIUM CHLORIDE 0.45% 1,000 ML IV SCH (22:43)
[2021-08-14] VITALS: BP 109/66
[2021-08-14] MEDS: KETOROLAC 30MG/ML VIAL IV SCH ×5 (00:42→23:28)
[2021-08-14] MEDS: IPRATROPIUM/ALBUTEROL 0.5-3(2.5)MG/3ML NEB NEB SCH ×5 (02:35→21:25)
[2021-08-14 04:00] VITALS: BP 108/52
[2021-08-14] MEDS: BLOOD SUGAR DIAGNOSTIC STRIP TEST SCH ×4 (06:26→21:00)
[2021-08-14] MEDS: MUPIROCIN 2% OINT 22GM TOP SCH ×3 (06:28→22:31)
[2021-08-14] MEDS: NITROGLYCERIN OINT 1GM/INCH UDPKT TD SCH ×3 (06:32→22:31)
[2021-08-14] MEDS: INSULIN LISPRO 100 UNITS/ML SUBCUT SCH ×4 (06:45→22:34)
[2021-08-14 08:00] VITALS: BP 99/52
[2021-08-14] MEDS: AMLODIPINE 10MG TABLET PO SCH (08:34)
[2021-08-14] MEDS: INSULIN GLARGINE 100 UNITS/ML SUBCUT SCH ×2 (09:08→22:33)
[2021-08-14] MEDS: FAMOTIDINE 20MG/2ML VIAL IV SCH (09:08)
[2021-08-14 10:42] LABS: CHLORIDE 109 mEq/L (98-107)
[2021-08-14 12:00] VITALS: BP 97/44
[2021-08-14] MEDS: VANCOMYCIN 1GM PMX (XELLIA) 200 ML IV SCH (12:05)
[2021-08-14] MEDS ORDERED: POTASSIUM CHLORIDE 20MEQ TABLET SR PO NR (14:45)
[2021-08-14 15:23] LABS: BASOPHILS % 0.1 % (0.0-2.0); EOSINOPHILS % 0.5 % (0.0-5.0); HEMATOCRIT. 40.6 % (36.0-48.0); HEMOGLOBIN. 13.1 g/dL (12.0-16.0); LYMPHOCYTES % 14.3 % (20.0-50.0); MEAN CORPUSCULAR HEMOGLOBIN 29.5 pg (28.0-32.0); MEAN CORPUSCULAR VOLUME 91.6 fL (81.0-99.0); MEAN PLATELET VOLUME 10.2 fl (7.4-10.4); MONOCYTES % 10.9 % (2.0-8.0); NEUTROPHILS % 74.2 % (40.0-76.0); PLATELET 135 x1000/uL (130-400); RED BLOOD CELL COUNT 4.44 mill/uL (4.2-5.4); RED CELL DISTRIBUTION WIDTH 16.8 % (11.6-14.6)
[2021-08-14] MEDS: SODIUM CHLORIDE 0.45% 1,000 ML IV SCH (15:24)
[2021-08-14 16:00] VITALS: BP 123/58
[2021-08-14] MEDS: LOSARTAN POTASSIUM 50 MG TABLET PO SCH (17:00)
[2021-08-14 20:00] VITALS: BP 122/57
[2021-08-15] VITALS: BP 91/46
[2021-08-15] MEDS: IPRATROPIUM/ALBUTEROL 0.5-3(2.5)MG/3ML NEB NEB SCH ×4 (01:16→21:55)
[2021-08-15 04:00] VITALS: BP 121/50
[2021-08-15] MEDS: KETOROLAC 30MG/ML VIAL IV SCH ×3 (05:51→17:59)
[2021-08-15] MEDS: VANCOMYCIN 1GM PMX (XELLIA) 200 ML IV SCH (05:52)
[2021-08-15] MEDS: NITROGLYCERIN OINT 1GM/INCH UDPKT TD SCH ×3 (05:52→21:26)
[2021-08-15] MEDS: MUPIROCIN 2% OINT 22GM TOP SCH ×3 (05:52→21:27)
[2021-08-15] MEDS: BLOOD SUGAR DIAGNOSTIC STRIP TEST SCH ×4 (06:13→21:25)
[2021-08-15] MEDS: SODIUM CHLORIDE 0.45% 1,000 ML IV SCH (06:59)
[2021-08-15] MEDS: INSULIN LISPRO 100 UNITS/ML SUBCUT SCH ×4 (06:59→21:24)
[2021-08-15 08:00] VITALS: BP 132/53
[2021-08-15] MEDS: AMLODIPINE 10MG TABLET PO SCH (09:13)
[2021-08-15] MEDS: FAMOTIDINE 20MG/2ML VIAL IV SCH (09:13)
[2021-08-15 10:11] LABS: BASOPHILS % 0.1 % (0.0-2.0); EOSINOPHILS % 1.1 % (0.0-5.0); HEMATOCRIT. 33.8 % (36.0-48.0); HEMOGLOBIN. 11.3 g/dL (12.0-16.0); LYMPHOCYTES % 11.1 % (20.0-50.0); MEAN CORPUSCULAR HEMOGLOBIN 29.6 pg (28.0-32.0); MEAN CORPUSCULAR VOLUME 88.2 fL (81.0-99.0); MEAN PLATELET VOLUME 10.5 fl (7.4-10.4); MONOCYTES % 11.2 % (2.0-8.0); NEUTROPHILS % 76.5 % (40.0-76.0); PLATELET 137 x1000/uL (130-400); RED BLOOD CELL COUNT 3.83 mill/uL (4.2-5.4); RED CELL DISTRIBUTION WIDTH 16.4 % (11.6-14.6)
[2021-08-15 10:24] LABS: CHLORIDE 110 mEq/L (98-107)
[2021-08-15] MEDS ORDERED: POTASSIUM CHLORIDE 20MEQ TABLET SR PO NR (11:00)
[2021-08-15] MEDS: INSULIN GLARGINE 100 UNITS/ML SUBCUT SCH ×2 (11:14→21:24)
[2021-08-15 12:00] VITALS: BP 147/56
[2021-08-15 16:00] VITALS: BP 125/58
[2021-08-15] MEDS: LOSARTAN POTASSIUM 50 MG TABLET PO SCH (16:51)
[2021-08-15 20:00] VITALS: BP 143/67
[2021-08-16] VITALS (7 sets, daily range): BP systolic 116–154; BP diastolic 63–78
[2021-08-16] MEDS: VANCOMYCIN 1GM PMX (XELLIA) 200 ML IV SCH ×2 (01:00→18:01)
[2021-08-16] MEDS: KETOROLAC 30MG/ML VIAL IV SCH ×3 (01:01→12:00)
[2021-08-16] MEDS: IPRATROPIUM/ALBUTEROL 0.5-3(2.5)MG/3ML NEB NEB SCH ×4 (01:06→22:17)
[2021-08-16] MEDS: NITROGLYCERIN OINT 1GM/INCH UDPKT TD SCH ×3 (06:11→21:43)
[2021-08-16] MEDS: BLOOD SUGAR DIAGNOSTIC STRIP TEST SCH ×4 (06:12→20:48)
[2021-08-16] MEDS: MUPIROCIN 2% OINT 22GM TOP SCH ×3 (06:12→21:44)
[2021-08-16] MEDS: INSULIN LISPRO 100 UNITS/ML SUBCUT SCH ×4 (06:17→20:48)
[2021-08-16] MEDS: AMLODIPINE 10MG TABLET PO SCH (09:00)
[2021-08-16] MEDS: FAMOTIDINE 20MG/2ML VIAL IV SCH (09:00)
[2021-08-16 09:31] LABS: BASOPHILS % 0.2 % (0.0-2.0); EOSINOPHILS % 1.4 % (0.0-5.0); HEMOGLOBIN. 11.6 g/dL (12.0-16.0); LYMPHOCYTES % 10.1 % (20.0-50.0); MEAN CORPUSCULAR HEMOGLOBIN 29.5 pg (28.0-32.0); MEAN PLATELET VOLUME 10.6 fl (7.4-10.4); MONOCYTES % 9.4 % (2.0-8.0); NEUTROPHILS % 78.9 % (40.0-76.0); PLATELET 168 x1000/uL (130-400); RED BLOOD CELL COUNT 3.93 mill/uL (4.2-5.4); RED CELL DISTRIBUTION WIDTH 16.3 % (11.6-14.6)
[2021-08-16 09:42] LABS: CHLORIDE 107 mEq/L (98-107)
[2021-08-16 10:29] LABS: BG BASE EXCESS 1.9 mmol/L (-2.0-2.0); BG CARBOXYHEMOGLOBIN 0.3 % (0.5-1.5); BG DEOXYHEMOGLOBIN 3.1 % (0.0-5.0); BG FRACTION INSPIRED OXYGEN 28; BG HCO3 ACT 26.5 mmol/L (22.0-26.0); BG METHEMOGLOBIN 0.2 % (0.0-1.5); BG OXYGEN SATURATION 96.9 % (92.0-98.5); BG OXYHEMOGLOBIN 96.4 % (94.0-97.0); BG PCO2 41.4 mmHg (35.0-45.0); BG PH 7.424 (7.350-7.450); BG PO2 88.5 mmHg (75.0-100.0); BG SAMPLE SITE RIGHT RADIAL; BG TOTAL HEMOGLOBIN 12.6 g/dL (12.0-18.0); BG VENT MODE NASAL CANNULA
[2021-08-16] MEDS: LOSARTAN POTASSIUM 50 MG TABLET PO SCH (18:00)
[2021-08-16] MEDS: INSULIN GLARGINE 100 UNITS/ML SUBCUT SCH (21:44)
[2021-08-17] VITALS: BP_SYST 110; BP_SYST 147; BP_DIAS 50; BP_DIAS 67
[2021-08-17] MEDS: IPRATROPIUM/ALBUTEROL 0.5-3(2.5)MG/3ML NEB NEB SCH ×3 (01:38→15:55)
[2021-08-17 04:00] VITALS: BP 147/67
[2021-08-17] MEDS: MUPIROCIN 2% OINT 22GM TOP SCH ×2 (05:51→13:30)
[2021-08-17] MEDS: NITROGLYCERIN OINT 1GM/INCH UDPKT TD SCH ×2 (05:51→13:29)
[2021-08-17] MEDS: INSULIN LISPRO 100 UNITS/ML SUBCUT SCH ×3 (06:17→17:56)
[2021-08-17] MEDS: BLOOD SUGAR DIAGNOSTIC STRIP TEST SCH ×3 (06:18→16:43)
[2021-08-17 07:23] LABS: BASOPHILS % 0.1 % (0.0-2.0); EOSINOPHILS % 1.2 % (0.0-5.0); HEMATOCRIT. 33.2 % (36.0-48.0); HEMOGLOBIN. 11.1 g/dL (12.0-16.0); LYMPHOCYTES % 10.3 % (20.0-50.0); MEAN CORPUSCULAR HEMOGLOBIN 29.7 pg (28.0-32.0); MEAN CORPUSCULAR VOLUME 88.6 fL (81.0-99.0); MEAN PLATELET VOLUME 9.9 fl (7.4-10.4); MONOCYTES % 9.2 % (2.0-8.0); NEUTROPHILS % 79.2 % (40.0-76.0); PLATELET 206 x1000/uL (130-400); RED BLOOD CELL COUNT 3.75 mill/uL (4.2-5.4); RED CELL DISTRIBUTION WIDTH 16.5 % (11.6-14.6)
[2021-08-17 07:46] LABS: CHLORIDE 107 mEq/L (98-107)
[2021-08-17 08:00] VITALS: BP 153/70
[2021-08-17] MEDS: FAMOTIDINE 20MG/2ML VIAL IV SCH (09:52)
[2021-08-17] MEDS: AMLODIPINE 10MG TABLET PO SCH (09:52)
[2021-08-17] MEDS: INSULIN GLARGINE 100 UNITS/ML SUBCUT SCH (09:53)
[2021-08-17] MEDS ORDERED: INSULIN GLARGINE 100 UNITS/ML SUBCUT NR (10:45)
[2021-08-17 12:00] VITALS: BP 133/83
[2021-08-17] MEDS: VANCOMYCIN 1GM PMX (XELLIA) 200 ML IV SCH (13:29)
[2021-08-17 16:00] VITALS: BP 144/62
[2021-08-17 16:12] VITALS: BP 133/83
[2021-08-17] MEDS: LOSARTAN POTASSIUM 50 MG TABLET PO SCH (17:55)
[2021-08-17] MEDS ORDERED: INSULIN GLARGINE 100 UNITS/ML SUBCUT SCH (22:00)
== END 2021-08-17 20:45 | disposition home health service (06) | DRG 871 ==
LOC: ER 08:54 → 8WST 13:52 → SUPCPDRO 15:08 → ENRESERV 18:13 → EDBEDREQ 21:11 → EDBEDREQTM 21:11
PROVIDERS: ADMIT Internal Medicine; ATTEND Internal Medicine
PROC: 0DH64UZ Insertion of Feeding Device into Stomach, Percutaneous Endoscopic Approach (ICD-10-PCS; principal; 2021-08-03)
PROC: 02HV33Z Insertion of Infusion Device into Superior Vena Cava, Percutaneous Approach (ICD-10-PCS; 2021-08-07)
PROC: B518ZZA Fluoroscopy of Superior Vena Cava, Guidance (ICD-10-PCS; 2021-08-07)
PROC: 0DJ68ZZ Inspection of Stomach, Via Natural or Artificial Opening Endoscopic (ICD-10-PCS; 2021-08-09)
PROC: 0DH60UZ Insertion of Feeding Device into Stomach, Open Approach (ICD-10-PCS; 2021-08-13)
DX: A41.9 Sepsis, unspecified organism (principal); G93.41 Metabolic encephalopathy; J69.0 Pneumonitis due to inhalation of food and vomit; E87.0 Hyperosmolality and hypernatremia; R47.01 Aphasia; Z68.41 Body mass index [BMI] 40.0-44.9, adult; K94.23 Gastrostomy malfunction; J44.0 Chronic obstructive pulmonary disease with (acute) lower respiratory infection; E46 Unspecified protein-calorie malnutrition; E11.65 Type 2 diabetes mellitus with hyperglycemia; E86.0 Dehydration; F03.90 Unspecified dementia, unspecified severity, without behavioral disturbance, psychotic disturbance, mood disturbance, and anxiety; R13.10 Dysphagia, unspecified; E87.8 Other disorders of electrolyte and fluid balance, not elsewhere classified; G31.83 Neurocognitive disorder with Lewy bodies; I65.21 Occlusion and stenosis of right carotid artery; J44.9 Chronic obstructive pulmonary disease, unspecified; E66.9 Obesity, unspecified; E88.09 Other disorders of plasma-protein metabolism, not elsewhere classified; R13.12 Dysphagia, oropharyngeal phase; Z20.822 Contact with and (suspected) exposure to COVID-19; Y83.8 Other surgical procedures as the cause of abnormal reaction of the patient, or of later complication, without mention of misadventure at the time of the procedure; Y82.8 Other medical devices associated with adverse incidents; E87.6 Hypokalemia; Z86.73 Personal history of transient ischemic attack (TIA), and cerebral infarction without residual deficits; Z91.81 History of falling; Z90.710 Acquired absence of both cervix and uterus; Y92.89 Other specified places as the place of occurrence of the external cause; I10 Essential (primary) hypertension; R06.03 Acute respiratory distress
CPT/HCPCS: 36415; 36573; 36600; 70551; 71045; 74018; 80048; 80053; 80202; 80305; 80307; 80320; 80329; 81003; 82140; 82375; 82550; 82805; 82962; 83036; 83605; 83735; 83880; 84132; 84443; 84484; 85025; 86850; 86900; 87070; 87077; 87186; 87426; 88305; 93005; 93306; 93880; 94640; 99285; C1725; J0360; J1100; J1650; J1815; J1885; J1956; J2060; J2250; J2270; J2405; J2704; J3010; J3370; J3480; J3490; G0480

== ENCOUNTER 2022-07-24 10:48 | Inpatient (IN) | payer MEDICARE, MEDICAID ==
[~2022-07-24] VITALS: Ht 149.9 cm; Wt 79.4 kg
[2022-07-24] VITALS (7 sets, daily range): BP systolic 109–138; BP diastolic 47–64
[2022-07-24 11:17] LABS: BASOPHILS % 0.1 % (0.0-2.0); EOSINOPHILS % 0.7 % (0.0-5.0); HEMATOCRIT. 23.4 % (36.0-48.0); HEMOGLOBIN. 7.7 g/dL (12.0-16.0); LYMPHOCYTES % 9.2 % (20.0-50.0); MEAN CORPUSCULAR HEMOGLOBIN 24.9 pg (28.0-32.0); MEAN CORPUSCULAR VOLUME 75.7 fL (81.0-99.0); MEAN PLATELET VOLUME 8.3 fl (7.4-10.4); MONOCYTES % 9.5 % (2.0-8.0); NEUTROPHILS % 80.5 % (40.0-76.0); PLATELET 333 x1000/uL (130-400); RED BLOOD CELL COUNT 3.09 mill/uL (4.2-5.4); RED CELL DISTRIBUTION WIDTH 17.7 % (11.6-14.6)
[2022-07-24 11:23] LABS: CHLORIDE 92 mEq/L (98-107)
[2022-07-24 11:43] LABS: PROTHROMBIN TIME 11.2 sec (9.6-11.0)
[2022-07-24] MEDS ORDERED: LEVOFLOXACIN 750MG PREMIX 150 ML IV ONE (12:00)
[2022-07-24] MEDS ORDERED: LACTULOSE 20G/30ML UDC GT ONE (20:30)
[2022-07-24] MEDS ORDERED: NA PHOS,M-B/NA PHOS,DI-BA ENEMA 118ML PR NR (20:30)
[2022-07-24] MEDS ORDERED: AMLO10TA80 MT (21:19)
[2022-07-24] MEDS ORDERED: T3 PO ×2 (21:19)
[2022-07-24] MEDS ORDERED: RIVA1PAT9 TP (21:19)
[2022-07-24] MEDS ORDERED: LINA5TAB MT (21:19)
[2022-07-24] MEDS ORDERED: ZOLP5TAB2 PO (21:19)
[2022-07-24] MEDS ORDERED: ARGI1POW17 PO (21:19)
[2022-07-24] MEDS ORDERED: FURO40TA5 PO (21:19)
[2022-07-24] MEDS ORDERED: LINA145C PO (21:19)
[2022-07-24] MEDS ORDERED: GABA-529 MT (21:19)
[2022-07-24] MEDS ORDERED: IPRATROPIUM/ALBUTEROL 0.5-3(2.5)MG/3ML NEB HHN PRN (21:45)
[2022-07-24] MEDS ORDERED: ONDANSETRON HCL 4MG/2ML INJ IV PRN (21:45)
[2022-07-24] MEDS ORDERED: ACETAMINOPHEN 650MG/20.3ML UDC GT PRN (21:45)
[2022-07-24] MEDS ORDERED: ACETAMINOPHEN WITH CODEINE 120-12MG/5ML UDC PO PRN (21:45)
[2022-07-24] MEDS ORDERED: BLOOD SUGAR DIAGNOSTIC STRIP TEST SCH (22:15)
[2022-07-24] MEDS ORDERED: INSULIN LISPRO 100 UNITS/ML SUBCUT SCH (22:15)
[2022-07-24] MEDS ORDERED: DEXTROSE 50% WATER 50ML SYRINGE IV PRN (22:15)
[2022-07-24 22:52] LABS: BG BASE EXCESS 14.5 mmol/L (-2.0-2.0); BG CARBOXYHEMOGLOBIN 1.1 % (0.5-1.5); BG DEOXYHEMOGLOBIN 8.6 % (0.0-5.0); BG FRACTION INSPIRED OXYGEN 44; BG HCO3 ACT 38.7 mmol/L (22.0-26.0); BG METHEMOGLOBIN 0.1 % (0.0-1.5); BG OXYGEN SATURATION 91.3 % (92.0-98.5); BG OXYHEMOGLOBIN 90.2 % (94.0-97.0); BG PCO2 47.1 mmHg (35.0-45.0); BG PH 7.532 (7.350-7.450); BG PO2 59.4 mmHg (75.0-100.0); BG SAMPLE SITE LEFT RADIAL; BG TOTAL HEMOGLOBIN 8.6 g/dL (12.0-18.0); BG VENT MODE NASAL CANNULA
[2022-07-24] MEDS ORDERED: VANCOMYCIN 1.25GM PMX (XELLIA) 250 ML IV SCH (23:00)
[2022-07-24] MEDS ORDERED: POTASSIUM CHLORIDE 20MEQ/PACKET GT NR (23:15)
[2022-07-25] VITALS (12 sets, daily range): BP systolic 108–159; BP diastolic 41–65
[2022-07-25 01:24] LABS: CREATINE KINASE MB FRACTION < 1.0 ng/mL (0.5-3.6)
[2022-07-25] MEDS: ACETAMINOPHEN 650MG/20.3ML UDC GT PRN ×3 (04:12→21:45)
[2022-07-25] MEDS: BLOOD SUGAR DIAGNOSTIC STRIP TEST SCH ×3 (05:17→17:22)
[2022-07-25] MEDS: INSULIN LISPRO 100 UNITS/ML SUBCUT SCH ×3 (05:17→17:32)
[2022-07-25 07:12] LABS: CREATINE KINASE MB FRACTION < 1.0 ng/mL (0.5-3.6)
[2022-07-25] MEDS: RIVASTIGMINE 4.6 MG/24 HR TD PATCH TD SCH (09:00)
[2022-07-25 10:08] LABS: BASOPHILS % 0.2 % (0.0-2.0); EOSINOPHILS % 0.2 % (0.0-5.0); HEMATOCRIT. 22.8 % (36.0-48.0); HEMOGLOBIN. 7.4 g/dL (12.0-16.0); LYMPHOCYTES % 8.2 % (20.0-50.0); MEAN CORPUSCULAR HEMOGLOBIN 24.6 pg (28.0-32.0); MEAN CORPUSCULAR VOLUME 76.3 fL (81.0-99.0); MEAN PLATELET VOLUME 8.9 fl (7.4-10.4); MONOCYTES % 7.8 % (2.0-8.0); NEUTROPHILS % 83.6 % (40.0-76.0); PLATELET 317 x1000/uL (130-400); RED BLOOD CELL COUNT 2.99 mill/uL (4.2-5.4); RED CELL DISTRIBUTION WIDTH 17.8 % (11.6-14.6)
[2022-07-25 10:24] LABS: CHLORIDE 96 mEq/L (98-107)
[2022-07-25] MEDS ORDERED: ACETAMINOPHEN 325MG TABLET PO NR (14:00)
[2022-07-25] MEDS ORDERED: NALOXONE HCL 0.4MG/ML VIAL IV PRN (15:15)
[2022-07-25 16:29] LABS: T4 FREE 1.3 ng/dL (0.76-1.46)
[2022-07-25] MEDS: VANCOMYCIN 750MG PREMIX 150 ML IV SCH (17:21)
[2022-07-25] MEDS: MENTHOL/LANOLIN/CALAMINE/ZN OX OINT 71GM TOP SCH (17:30)
[2022-07-26] VITALS (17 sets, daily range): BP systolic 110–159; BP diastolic 35–66
[2022-07-26] MEDS: INSULIN LISPRO 100 UNITS/ML SUBCUT SCH ×5 (00:01→23:28)
[2022-07-26] MEDS: BLOOD SUGAR DIAGNOSTIC STRIP TEST SCH ×5 (00:01→23:28)
[2022-07-26] MEDS: MEROPENEM 500 MG in SODIUM CHLORIDE 0.9% 50 ML IV SCH ×4 (00:29→23:58)
[2022-07-26] MEDS: MENTHOL/LANOLIN/CALAMINE/ZN OX OINT 71GM TOP SCH ×2 (09:04→22:01)
[2022-07-26] MEDS: RIVASTIGMINE 4.6 MG/24 HR TD PATCH TD SCH (09:04)
[2022-07-26] MEDS: SODIUM HYPOCHLORITE 0.125% 473ML SOLUTION TOP SCH (09:05)
[2022-07-26 09:29] LABS: BASOPHILS % 0.2 % (0.0-2.0); EOSINOPHILS % 0.6 % (0.0-5.0); HEMATOCRIT. 28.2 % (36.0-48.0); HEMOGLOBIN. 9.2 g/dL (12.0-16.0); LYMPHOCYTES % 13.1 % (20.0-50.0); MEAN CORPUSCULAR HEMOGLOBIN 24.5 pg (28.0-32.0); MEAN CORPUSCULAR VOLUME 75.6 fL (81.0-99.0); MEAN PLATELET VOLUME 8.4 fl (7.4-10.4); MONOCYTES % 9.6 % (2.0-8.0); NEUTROPHILS % 76.5 % (40.0-76.0); PLATELET 337 x1000/uL (130-400); RED BLOOD CELL COUNT 3.74 mill/uL (4.2-5.4); RED CELL DISTRIBUTION WIDTH 17.8 % (11.6-14.6)
[2022-07-26] MEDS: VANCOMYCIN 750MG PREMIX 150 ML IV SCH (12:52)
[2022-07-26 23:51] LABS: BASOPHILS % 0.2 % (0.0-2.0); EOSINOPHILS % 1.2 % (0.0-5.0); HEMATOCRIT. 27.3 % (36.0-48.0); HEMOGLOBIN. 8.9 g/dL (12.0-16.0); LYMPHOCYTES % 15.9 % (20.0-50.0); MEAN CORPUSCULAR HEMOGLOBIN 24.8 pg (28.0-32.0); MEAN CORPUSCULAR VOLUME 75.7 fL (81.0-99.0); MEAN PLATELET VOLUME 8.6 fl (7.4-10.4); MONOCYTES % 9.2 % (2.0-8.0); NEUTROPHILS % 73.5 % (40.0-76.0); PLATELET 341 x1000/uL (130-400); RED CELL DISTRIBUTION WIDTH 17.8 % (11.6-14.6)
[2022-07-26] MEDS: ACETAMINOPHEN 650MG/20.3ML UDC GT PRN (23:59)
[2022-07-27] VITALS (13 sets, daily range): BP systolic 123–155; BP diastolic 51–69
[2022-07-27 00:08] LABS: CHLORIDE 104 mEq/L (98-107)
[2022-07-27] MEDS: VANCOMYCIN 750MG PREMIX 150 ML IV SCH (05:04)
[2022-07-27] MEDS: BLOOD SUGAR DIAGNOSTIC STRIP TEST SCH ×3 (05:05→17:50)
[2022-07-27] MEDS: INSULIN LISPRO 100 UNITS/ML SUBCUT SCH ×4 (05:05→21:00)
[2022-07-27] MEDS ORDERED: POTASSIUM CHLORIDE 20MEQ TABLET SR PO NR (08:30)
[2022-07-27] MEDS: RIVASTIGMINE 4.6 MG/24 HR TD PATCH TD SCH (10:23)
[2022-07-27] MEDS: MENTHOL/LANOLIN/CALAMINE/ZN OX OINT 71GM TOP SCH ×2 (10:24→21:00)
[2022-07-27] MEDS: SODIUM HYPOCHLORITE 0.125% 473ML SOLUTION TOP SCH (10:24)
[2022-07-27] MEDS: ACETAMINOPHEN WITH CODEINE 300/30MG TABLET PO PRN (10:36)
[2022-07-27] MEDS: MEROPENEM 500 MG in SODIUM CHLORIDE 0.9% 50 ML IV SCH ×2 (12:17→18:22)
[2022-07-28] VITALS (12 sets, daily range): BP systolic 135–163; BP diastolic 51–75
[2022-07-28] MEDS: MEROPENEM 500 MG in SODIUM CHLORIDE 0.9% 50 ML IV SCH ×2 (02:03→09:57)
[2022-07-28] MEDS: BLOOD SUGAR DIAGNOSTIC STRIP TEST SCH ×5 (05:49→23:42)
[2022-07-28] MEDS: INSULIN LISPRO 100 UNITS/ML SUBCUT SCH ×4 (05:56→23:47)
[2022-07-28] MEDS ORDERED: VANCOMYCIN 750MG PREMIX 150 ML IV SCH (06:00)
[2022-07-28] MEDS: SODIUM HYPOCHLORITE 0.125% 473ML SOLUTION TOP SCH (07:41)
[2022-07-28] MEDS: MENTHOL/LANOLIN/CALAMINE/ZN OX OINT 71GM TOP SCH ×2 (09:58→21:00)
[2022-07-28] MEDS: RIVASTIGMINE 4.6 MG/24 HR TD PATCH TD SCH (09:58)
[2022-07-28] MEDS ORDERED: CEFTRIAXONE 2GM/50ML (ADDEASE) 50 ML IV SCH (16:30)
[2022-07-28] MEDS: CEFTRIAXONE 2 G in DEXTROSE 5% WATER 50 ML IV SCH (17:03)
[2022-07-28] MEDS: METRONIDAZOLE 500MG TABLET PO SCH (18:05)
[2022-07-29] VITALS (11 sets, daily range): BP systolic 128–169; BP diastolic 46–76
[2022-07-29] MEDS: METRONIDAZOLE 500MG TABLET PO SCH ×3 (01:53→17:34)
[2022-07-29 05:04] LABS: CHLORIDE 110 mEq/L (98-107)
[2022-07-29] MEDS: INSULIN LISPRO 100 UNITS/ML SUBCUT SCH ×3 (05:32→17:35)
[2022-07-29] MEDS: BLOOD SUGAR DIAGNOSTIC STRIP TEST SCH ×3 (05:32→17:36)
[2022-07-29] MEDS ORDERED: VANCOMYCIN 750MG PREMIX 150 ML IV SCH ×2 (06:00)
[2022-07-29] MEDS: RIVASTIGMINE 4.6 MG/24 HR TD PATCH TD SCH (09:07)
[2022-07-29] MEDS: SODIUM HYPOCHLORITE 0.125% 473ML SOLUTION TOP SCH (09:09)
[2022-07-29] MEDS: MENTHOL/LANOLIN/CALAMINE/ZN OX OINT 71GM TOP SCH ×2 (09:09→22:30)
[2022-07-29] MEDS ORDERED: LIDOCAINE HCL 1% 10 MG/ML 10ML VIAL ONE (12:49)
[2022-07-29] MEDS: ACETAMINOPHEN WITH CODEINE 300/30MG TABLET PO PRN (14:47)
[2022-07-29] MEDS: CEFTRIAXONE 2 G in DEXTROSE 5% WATER 50 ML IV SCH (17:34)
[2022-07-30] VITALS: BP 143/54
[2022-07-30] MEDS: BLOOD SUGAR DIAGNOSTIC STRIP TEST SCH ×5 (00:03→21:35)
[2022-07-30] MEDS: INSULIN LISPRO 100 UNITS/ML SUBCUT SCH ×5 (00:08→21:59)
[2022-07-30] MEDS: ACETAMINOPHEN WITH CODEINE 300/30MG TABLET PO PRN (00:08)
[2022-07-30] MEDS: METRONIDAZOLE 500MG TABLET PO SCH ×3 (02:50→17:35)
[2022-07-30 04:00] VITALS: BP 142/62
[2022-07-30 06:42] LABS: BASOPHILS % 0.4 % (0.0-2.0); EOSINOPHILS % 1.8 % (0.0-5.0); HEMATOCRIT. 28.8 % (36.0-48.0); HEMOGLOBIN. 9.4 g/dL (12.0-16.0); LYMPHOCYTES % 19.4 % (20.0-50.0); MEAN CORPUSCULAR HEMOGLOBIN 24.9 pg (28.0-32.0); MEAN CORPUSCULAR VOLUME 76.4 fL (81.0-99.0); MEAN PLATELET VOLUME 8.5 fl (7.4-10.4); MONOCYTES % 7.8 % (2.0-8.0); NEUTROPHILS % 70.6 % (40.0-76.0); PLATELET 380 x1000/uL (130-400); RED BLOOD CELL COUNT 3.77 mill/uL (4.2-5.4); RED CELL DISTRIBUTION WIDTH 18.4 % (11.6-14.6)
[2022-07-30 07:53] LABS: CHLORIDE 109 mEq/L (98-107)
[2022-07-30 08:00] VITALS: BP 138/67
[2022-07-30] MEDS: SODIUM HYPOCHLORITE 0.125% 473ML SOLUTION TOP SCH (09:21)
[2022-07-30] MEDS: MENTHOL/LANOLIN/CALAMINE/ZN OX OINT 71GM TOP SCH ×2 (09:34→21:42)
[2022-07-30 12:00] VITALS: BP 132/64
[2022-07-30] MEDS: RIVASTIGMINE 4.6 MG/24 HR TD PATCH TD SCH (12:37)
[2022-07-30] MEDS ORDERED: IPRATROPIUM/ALBUTEROL 0.5-3(2.5)MG/3ML NEB HHN PRN (13:30)
[2022-07-30] MEDS: IPRATROPIUM/ALBUTEROL 0.5-3(2.5)MG/3ML NEB HHN PRN (16:37)
[2022-07-30] MEDS: CEFTRIAXONE 2 G in DEXTROSE 5% WATER 50 ML IV SCH (17:35)
[2022-07-30 20:00] VITALS: BP 147/59
[2022-07-30] MEDS: ACETAMINOPHEN 650MG/20.3ML UDC GT PRN (22:00)
[2022-07-31] VITALS (7 sets, daily range): BP systolic 135–174; BP diastolic 60–69
[2022-07-31] MEDS: METRONIDAZOLE 500MG TABLET PO SCH ×3 (01:04→17:23)
[2022-07-31] MEDS: INSULIN LISPRO 100 UNITS/ML SUBCUT SCH ×4 (06:23→23:02)
[2022-07-31] MEDS: BLOOD SUGAR DIAGNOSTIC STRIP TEST SCH ×4 (06:23→23:04)
[2022-07-31] MEDS: MENTHOL/LANOLIN/CALAMINE/ZN OX OINT 71GM TOP SCH ×2 (09:00→21:59)
[2022-07-31] MEDS: SODIUM HYPOCHLORITE 0.125% 473ML SOLUTION TOP SCH (09:00)
[2022-07-31] MEDS: RIVASTIGMINE 4.6 MG/24 HR TD PATCH TD SCH (10:09)
[2022-07-31] MEDS ORDERED: ACETAMINOPHEN WITH CODEINE 300/30MG TABLET PO PRN (12:15)
[2022-07-31] MEDS: IPRATROPIUM/ALBUTEROL 0.5-3(2.5)MG/3ML NEB HHN PRN (13:04)
[2022-07-31] MEDS: CEFTRIAXONE 2 G in DEXTROSE 5% WATER 50 ML IV SCH (17:36)
[2022-08-01] VITALS: BP 163/62
[2022-08-01] MEDS: METRONIDAZOLE 500MG TABLET PO SCH ×2 (02:13→10:00)
[2022-08-01] MEDS: ACETAMINOPHEN 650MG/20.3ML UDC GT PRN (02:43)
[2022-08-01] MEDS ORDERED: CLONIDINE 0.1MG TABLET PO PRN (02:45)
[2022-08-01 04:00] VITALS: BP 140/46
[2022-08-01] MEDS: BLOOD SUGAR DIAGNOSTIC STRIP TEST SCH ×2 (06:41→12:00)
[2022-08-01] MEDS: INSULIN LISPRO 100 UNITS/ML SUBCUT SCH ×2 (06:52→12:39)
[2022-08-01 08:00] VITALS: BP 138/61
[2022-08-01] MEDS: SODIUM HYPOCHLORITE 0.125% 473ML SOLUTION TOP SCH (09:02)
[2022-08-01] MEDS: MENTHOL/LANOLIN/CALAMINE/ZN OX OINT 71GM TOP SCH (09:02)
[2022-08-01] MEDS: RIVASTIGMINE 4.6 MG/24 HR TD PATCH TD SCH (09:02)
[2022-08-01 12:00] VITALS: BP 150/66
[2022-08-01 13:57] VITALS: BP 131/74
[2022-08-01] MEDS ORDERED: NALOXONE HCL 0.4MG/ML VIAL IV PRN (16:00)
== END 2022-08-01 17:40 | DRG 871 ==
LOC: ER 11:05 → 3WST 12:44 → EDBEDREQTM 12:46 → EDBEDREQ 12:46 → 5EST 07-25 00:27 → 8WST 07-29 17:50
PROVIDERS: ADMIT Internal Medicine; ATTEND Internal Medicine
PROC: 4A00X4Z Measurement of Central Nervous Electrical Activity, External Approach (ICD-10-PCS; principal; 2022-07-25)
PROC: 5A0935A Assistance with Respiratory Ventilation, Less than 24 Consecutive Hours, High Flow/Velocity Cannula (ICD-10-PCS; 2022-07-25)
PROC: 30233N1 Transfusion of Nonautologous Red Blood Cells into Peripheral Vein, Percutaneous Approach (ICD-10-PCS; 2022-07-26)
PROC: 02HV33Z Insertion of Infusion Device into Superior Vena Cava, Percutaneous Approach (ICD-10-PCS; 2022-07-29)
PROC: B548ZZA Ultrasonography of Superior Vena Cava, Guidance (ICD-10-PCS; 2022-07-29)
PROC: B5181ZA Fluoroscopy of Superior Vena Cava using Low Osmolar Contrast, Guidance (ICD-10-PCS; 2022-07-29)
DX: A41.9 Sepsis, unspecified organism (principal); J18.9 Pneumonia, unspecified organism; L89.304 Pressure ulcer of unspecified buttock, stage 4; L89.154 Pressure ulcer of sacral region, stage 4; F02.C18 Dementia in other diseases classified elsewhere, severe, with other behavioral disturbance; J91.8 Pleural effusion in other conditions classified elsewhere; M86.9 Osteomyelitis, unspecified; G31.83 Neurocognitive disorder with Lewy bodies; I10 Essential (primary) hypertension; R62.7 Adult failure to thrive; D64.9 Anemia, unspecified; E11.69 Type 2 diabetes mellitus with other specified complication; E66.9 Obesity, unspecified; Z68.35 Body mass index [BMI] 35.0-35.9, adult; Z93.1 Gastrostomy status; Z90.710 Acquired absence of both cervix and uterus; Z86.73 Personal history of transient ischemic attack (TIA), and cerebral infarction without residual deficits; Z74.01 Bed confinement status; Z91.81 History of falling; Z79.899 Other long term (current) drug therapy; Z79.84 Long term (current) use of oral hypoglycemic drugs
CPT/HCPCS: 36415; 36573; 36600; 71045; 71250; 72195; 74176; 80048; 80053; 80061; 80202; 82375; 82553; 82805; 82962; 83036; 83605; 84145; 84439; 84443; 84484; 85025; 85651; 86850; 86900; 86920; 87070; 87076; 93005; 94640; 95816; 99285; A6261; C1725; J0696; J1815; J1956; J2185; J3370; J3490; J7060; P9016

== ENCOUNTER 2025-02-04 19:00 | Inpatient (IN) | payer MEDICARE, MEDICAID ==
[~2025-02-04] VITALS: Ht 149.9 cm; Wt 66.7 kg
[~2025-02-04 19:00] MED LIST: AMLO10TA80 MT; ARGI1POW17 PO; FURO40TA5 PO; GABA-529 MT; LINA145C PO; LINA5TAB MT; RIVA1PAT9 TP; T3 PO; ZOLP5TAB2 PO
[2025-02-04] MEDS ORDERED: AZITHROMYCIN 500MG/250ML 250 ML IV ONE (19:15)
[2025-02-04] MEDS: SODIUM CHLORIDE 0.9% 1,000 ML IV ONE (19:35)
[2025-02-04] MEDS: CEFTRIAXONE 1GM/50ML 50 ML IV ONE (19:35)
[2025-02-04 19:54] LABS: HEMATOCRIT. 28.6 % (36.0-48.0); HEMOGLOBIN. 9.3 g/dL (12.0-16.0); MEAN PLATELET VOLUME 8.0 fl (7.4-10.4); PLATELET 414 x1000/uL (130-400); RED BLOOD CELL COUNT 3.59 mill/uL (4.2-5.4); RED CELL DISTRIBUTION WIDTH 15.4 % (11.6-14.6)
[2025-02-04 20:07] LABS: CREATININE 0.5 mg/dL (0.6-1.0); INR 1.0
[2025-02-04 20:08] LABS: UREA NITROGEN BLOOD 33 mg/dL (9-23)
[2025-02-04 20:09] LABS: ASPARTATE AMINOTRANSFERASE 41 IU/L (<34)
[2025-02-04 20:10] LABS: BILIRUBIN DIRECT < 0.1 mg/dL (<=3.0); BILIRUBIN TOTAL < 0.2 mg/dL (0.1-1.0); PROTEIN TOTAL 7.0 g/dL (6.0-8.3)
[2025-02-04] MEDS: AZITHROMYCIN 500MG/250ML 250 ML IV NR (20:28)
[2025-02-04 21:32] LABS: CLARITY URINE CLEAR (CLEAR); GLUCOSE URINE NEGATIVE (NEGATIVE); KETONES URINE TRACE (NEGATIVE); PH URINE >=9.0 (4.5-8.0); PROTEIN URINE NEGATIVE (NEGATIVE); SPECIFIC GRAVITY URINE 1.014 (1.005-1.030)
[2025-02-04 21:33] LABS: LEUKOCYTE ESTERASE URINE 3+ (NEGATIVE); NITRITE URINE NEGATIVE (NEGATIVE); OCCULT BLOOD URINE 1+ (NEGATIVE); UROBILINOGEN URINE 0.2 E.U./dL (0.2-1.0)
[2025-02-04 21:40] VITALS: BP 150/92; PULSE 89; RESP 18; TEMP 36.5; TEMP 36.5292; O2SAT 97
[2025-02-04 21:45] LABS: COLOR URINE STRAW (YELLOW)
[2025-02-04 21:47] LABS: BACTERIA URINE TRACE; RBC URINE 0-2 /hpf (0-2); SQUAMOUS EPITHELIAL CELL URINE RARE /lpf (RARE/1+)
[2025-02-04] MEDS ORDERED: LINA5TAB GT (22:56)
[2025-02-04] MEDS ORDERED: LEVO-65 GT (22:56)
[2025-02-04] MEDS ORDERED: T3 GT (22:56)
[2025-02-04] MEDS ORDERED: FURO40TA5 GT (22:56)
[2025-02-04] MEDS ORDERED: ONDANSETRON HCL 4MG/2ML INJ IV PRN (23:00)
[2025-02-04] MEDS ORDERED: HYDROCODONE/ACETAMINOPHEN 5/325MG TABLET PO PRN (23:00)
[2025-02-04] MEDS ORDERED: CLONIDINE 0.1MG TABLET PO PRN (23:00)
[2025-02-04 23:14] LABS: LYMPHOCYTES % MANUAL 6.0 % (20.0-60.0); MONOCYTES % MANUAL 9.0 % (2.0-8.0); NEUTROPHILS % MANUAL 85.0 % (45.0-75.0); PLATELET ESTIMATE NORMAL
[2025-02-04] MEDS ORDERED: HYDROCODONE/ACETAMINOPHEN 5/325MG TABLET GT PRN (23:15)
[2025-02-04] MEDS ORDERED: CEFEPIME 1GM IN DEXT 5% 50ML IV SCH (23:15)
[2025-02-04] MEDS ORDERED: DEXTROSE 50% WATER 50ML SYRINGE IV PRN (23:15)
[2025-02-04] MEDS: IPRATROPIUM/ALBUTEROL 0.5-3(2.5)MG/3ML NEB HHN SCH (23:22)
[2025-02-04 23:23] VITALS: PULSE 97; RESP 24; O2SAT 95
[2025-02-04] MEDS: SODIUM CHLORIDE 0.9% 1,000 ML IV SCH (23:34)
[2025-02-04] MEDS: HYDROCODONE/ACETAMINOPHEN 5/325MG TABLET GT PRN (23:35)
[2025-02-04] MEDS: BLOOD SUGAR DIAGNOSTIC STRIP TEST SCH (23:39)
[2025-02-04] MEDS: INSULIN LISPRO 100 UNITS/ML SUBCUT SCH (23:49)
[2025-02-05] VITALS (50 sets, daily range): BP systolic 88–145; BP diastolic 49–96; PULSE 73–110; RESP 13–29; TEMP 36.3–37.2; O2SAT 96–100
[2025-02-05] MEDS: VANCOMYCIN 1G PREMIX 200 ML IV NR (01:49)
[2025-02-05] MEDS: CEFEPIME 1GM/50ML 50 ML IV SCH (06:46)
[2025-02-05] MEDS: METHYLPREDNISOLONE SOD SUCC 40MG/ML (ACT-O-VIAL) IV NR (07:23)
[2025-02-05] MEDS ORDERED: INSULIN LISPRO 100 UNITS/ML SUBCUT SCH ×2 (08:10)
[2025-02-05] MEDS: PANTOPRAZOLE 40MG DR TABLET PO SCH (08:27)
[2025-02-05] MEDS: ASPIRIN 81MG EC TABLET PO SCH (08:27)
[2025-02-05] MEDS: ENOXAPARIN 40MG/0.4ML SYR SUBCUT SCH (08:29)
[2025-02-05 08:36] LABS: BASOPHILS % 0.4 % (0.0-2.0); EOSINOPHILS % 0.4 % (0.0-5.0); HEMATOCRIT. 30.7 % (36.0-48.0); HEMOGLOBIN. 9.7 g/dL (12.0-16.0); LYMPHOCYTES % 9.7 % (20.0-50.0); MEAN PLATELET VOLUME 8.3 fl (7.4-10.4); MONOCYTES % 6.0 % (2.0-8.0); NEUTROPHILS % 83.5 % (40.0-76.0); PLATELET 599 x1000/uL (130-400); RED BLOOD CELL COUNT 3.79 mill/uL (4.2-5.4); RED CELL DISTRIBUTION WIDTH 15.2 % (11.6-14.6)
[2025-02-05 08:49] LABS: CREATININE 0.5 mg/dL (0.6-1.0); TRIGLYCERIDE 134 mg/dL (0-150)
[2025-02-05 08:50] LABS: LDL CHOLESTEROL 115 mg/dL (5-100); UREA NITROGEN BLOOD 25 mg/dL (9-23)
[2025-02-05 08:54] LABS: T4 FREE 1.49 ng/dL (0.89-1.76)
[2025-02-05 12:23] LABS: BG BASE EXCESS 11.2 mmol/L (-2.0-3.0); BG CARBOXYHEMOGLOBIN 0.3 % (0.5-1.5); BG DEOXYHEMOGLOBIN 0.3 % (0.0-5.0); BG FRACTION INSPIRED OXYGEN 100; BG HCO3 ACT 35.8 mmol/L (21.0-28.0); BG METHEMOGLOBIN 0.1 % (0.5-1.5); BG OXYGEN SATURATION 99.7 % (94.0-98.0); BG OXYHEMOGLOBIN 99.3 % (94.0-98.0); BG PCO2 48.1 mmHg (32.0-45.0); BG PH 7.490 (7.350-7.450); BG PO2 436.6 mmHg (83.0-108.0); BG SAMPLE SITE LEFT RADIAL; BG TOTAL HEMOGLOBIN 10.3 g/dL (12.0-16.0); BG TOTAL RESPIRATORY RATE 22 b/min; BG VENT MODE MASK - BIPAP; BG VENT RATE 20.0 set
[2025-02-05] MEDS: METHYLPREDNISOLONE SOD SUCC 40MG/ML (ACT-O-VIAL) IV SCH (13:30)
[2025-02-05] MEDS: KCL 10MEQ/50ML PREMIX 50 ML IV SCH ×3 (13:30→19:02)
[2025-02-05] MEDS: CEFEPIME 2GM PREMIX 100ML IV SCH (17:54)
[2025-02-05] MEDS: VANCOMYCIN 750MG PREMIX 150 ML IV SCH (19:01)
[2025-02-05] MEDS: CLOTRIMAZOLE/BETAMETHASONE 1/0.05% CREAM 15GM TOP SCH (21:54)
[2025-02-05] MEDS ORDERED: INSULIN GLARGINE 100 UNITS/ML SUBCUT SCH (22:30)
[2025-02-05] MEDS: INSULIN GLARGINE 100 UNITS/ML SUBCUT SCH (23:12)
[2025-02-06] VITALS (18 sets, daily range): BP systolic 92–141; BP diastolic 27–107; PULSE 102–116; RESP 20–32; TEMP 36.3–37; O2SAT 95–100
[2025-02-06] MEDS: INSULIN LISPRO 100 UNITS/ML SUBCUT SCH (06:00)
[2025-02-06] MEDS ORDERED: POTASSIUM CHLORIDE 20MEQ/PACKET PO SCH (08:30)
[2025-02-06] MEDS ORDERED: NALOXONE HCL 0.4MG/ML VIAL IV PRN (08:30)
[2025-02-06] MEDS ORDERED: SPIRONOLACTONE 25MG TABLET PO SCH (09:00)
[2025-02-06] MEDS ORDERED: ASPIRIN 81MG TABLET PO SCH (10:00)
[2025-02-06] MEDS: ASPIRIN 81MG TABLET GT SCH (10:20)
[2025-02-06] MEDS: INSULIN LISPRO 100 UNITS/ML SUBCUT NR (10:22)
[2025-02-06] MEDS: INSULIN GLARGINE 100 UNITS/ML SUBCUT SCH (10:24)
[2025-02-06 11:37] LABS: HEMATOCRIT. 29.0 % (36.0-48.0); HEMOGLOBIN. 9.0 g/dL (12.0-16.0); MEAN PLATELET VOLUME 8.1 fl (7.4-10.4); PLATELET 461 x1000/uL (130-400); RED BLOOD CELL COUNT 3.52 mill/uL (4.2-5.4); RED CELL DISTRIBUTION WIDTH 16.0 % (11.6-14.6)
[2025-02-06 12:10] LABS: CREATININE 0.7 mg/dL (0.6-1.0); UREA NITROGEN BLOOD 35 mg/dL (9-23)
[2025-02-06 12:12] LABS: ASPARTATE AMINOTRANSFERASE 60 IU/L (<34); BILIRUBIN TOTAL < 0.2 mg/dL (0.1-1.0); PROTEIN TOTAL 7.1 g/dL (6.0-8.3)
[2025-02-06] MEDS: SPIRONOLACTONE 25 MG/5 ML ORAL.SUSP GT SCH (13:26)
[2025-02-06] MEDS: METHYLPREDNISOLONE SOD SUCC 40MG/ML (ACT-O-VIAL) IV SCH (14:00)
[2025-02-06] MEDS: SODIUM CHLORIDE 0.9% 250 ML IV ONE (16:30)
[2025-02-06] MEDS ORDERED: MIDODRINE HCL 5MG TABLET PO PRN (16:30)
[2025-02-06 17:25] LABS: LYMPHOCYTES % MANUAL 8.0 % (20.0-60.0); MONOCYTES % MANUAL 5.0 % (2.0-8.0); NEUTROPHILS % MANUAL 87.0 % (45.0-75.0); PLATELET ESTIMATE INCREASED
[2025-02-06] MEDS: ALBUMIN HUMAN 12.5G/250ML (5%) IV SCH (21:17)
[2025-02-06] MEDS: SODIUM CHLORIDE 0.9% 500 ML IV ONE (21:18)
[2025-02-06] MEDS ORDERED: INSULIN GLARGINE 100 UNITS/ML SUBCUT SCH (22:00)
[2025-02-06] MEDS: IPRATROPIUM/ALBUTEROL 0.5-3(2.5)MG/3ML NEB HHN SCH (23:54)
[2025-02-06] MEDS: BUDESONIDE 0.5MG/2ML NEB HHN SCH (23:54)
[2025-02-07] VITALS (17 sets, daily range): BP systolic 96–141; BP diastolic 54–93; PULSE 90–115; RESP 17–28; TEMP 35.9–36.9; O2SAT 94–100
[2025-02-07 06:51] LABS: HEMATOCRIT. 26.9 % (36.0-48.0); HEMOGLOBIN. 8.8 g/dL (12.0-16.0); MEAN PLATELET VOLUME 8.0 fl (7.4-10.4); PLATELET 405 x1000/uL (130-400); RED BLOOD CELL COUNT 3.34 mill/uL (4.2-5.4); RED CELL DISTRIBUTION WIDTH 15.6 % (11.6-14.6)
[2025-02-07 07:14] LABS: CREATININE 0.5 mg/dL (0.6-1.0); UREA NITROGEN BLOOD 43 mg/dL (9-23)
[2025-02-07 09:29] LABS: BG BASE EXCESS 6.1 mmol/L (-2.0-3.0); BG CARBOXYHEMOGLOBIN 0.3 % (0.5-1.5); BG DEOXYHEMOGLOBIN 2.6 % (0.0-5.0); BG FRACTION INSPIRED OXYGEN 40; BG HCO3 ACT 29.9 mmol/L (21.0-28.0); BG METHEMOGLOBIN 0.1 % (0.5-1.5); BG OXYGEN SATURATION 97.4 % (94.0-98.0); BG OXYHEMOGLOBIN 97.0 % (94.0-98.0); BG PCO2 39.9 mmHg (32.0-45.0); BG PH 7.492 (7.350-7.450); BG PO2 89.6 mmHg (83.0-108.0); BG SAMPLE SITE LEFT RADIAL; BG TOTAL HEMOGLOBIN 9.0 g/dL (12.0-16.0); BG VENT MODE MASK - BIPAP; BG VENT RATE 20.0 set
[2025-02-07] MEDS: FUROSEMIDE 40MG/4ML VIAL IVP NR (14:04)
[2025-02-07 19:58] LABS: BAND% 1.0 % (1.0-6.0); LYMPHOCYTES % MANUAL 2.0 % (20.0-60.0); MONOCYTES % MANUAL 2.0 % (2.0-8.0); NEUTROPHILS % MANUAL 95.0 % (45.0-75.0); PLATELET ESTIMATE INCREASED
[2025-02-08] VITALS (18 sets, daily range): BP systolic 103–138; BP diastolic 62–119; PULSE 96–122; RESP 18–32; TEMP 36.2–37.2; O2SAT 90–99
[2025-02-08 07:15] LABS: HEMATOCRIT. 28.8 % (36.0-48.0); HEMOGLOBIN. 9.2 g/dL (12.0-16.0); MEAN PLATELET VOLUME 8.5 fl (7.4-10.4); PLATELET 339 x1000/uL (130-400); RED BLOOD CELL COUNT 3.51 mill/uL (4.2-5.4); RED CELL DISTRIBUTION WIDTH 16.4 % (11.6-14.6)
[2025-02-08 07:32] LABS: CREATININE 0.5 mg/dL (0.6-1.0)
[2025-02-08 07:33] LABS: UREA NITROGEN BLOOD 40 mg/dL (9-23)
[2025-02-08 17:36] LABS: LYMPHOCYTES % MANUAL 4.0 % (20.0-60.0); MONOCYTES % MANUAL 4.0 % (2.0-8.0); NEUTROPHILS % MANUAL 92.0 % (45.0-75.0); PLATELET ESTIMATE NORMAL
[2025-02-09] VITALS (17 sets, daily range): BP systolic 109–133; BP diastolic 39–84; PULSE 95–118; RESP 15–25; TEMP 36.7–37.2; O2SAT 96–100
[2025-02-09 06:59] LABS: HEMATOCRIT. 27.5 % (36.0-48.0); HEMOGLOBIN. 8.7 g/dL (12.0-16.0); MEAN PLATELET VOLUME 8.4 fl (7.4-10.4); PLATELET 380 x1000/uL (130-400); RED BLOOD CELL COUNT 3.38 mill/uL (4.2-5.4); RED CELL DISTRIBUTION WIDTH 16.1 % (11.6-14.6)
[2025-02-09 07:37] LABS: CREATININE 0.6 mg/dL (0.6-1.0); UREA NITROGEN BLOOD 44 mg/dL (9-23)
[2025-02-09] MEDS ORDERED: METHYLPREDNISOLONE SOD SUCC 40MG/ML (ACT-O-VIAL) IV SCH (13:00)
[2025-02-09 15:57] LABS: LYMPHOCYTES % MANUAL 3.0 % (20.0-60.0); MONOCYTES % MANUAL 3.0 % (2.0-8.0); NEUTROPHILS % MANUAL 94.0 % (45.0-75.0); NUCLEATED RED BLOOD CELLS 4 /100 WBC; PLATELET ESTIMATE NORMAL
[2025-02-10] VITALS (11 sets, daily range): BP systolic 98–132; BP diastolic 32–69; PULSE 75–103; RESP 13–24; TEMP 36.7–37.2; O2SAT 95–100
[2025-02-10] MEDS: ACETAMINOPHEN 650MG/20.3ML UDC GT PRN (05:01)
[2025-02-10 07:11] LABS: BASOPHILS % 0.1 % (0.0-2.0); CREATININE 0.5 mg/dL (0.6-1.0); EOSINOPHILS % 0.1 % (0.0-5.0); HEMATOCRIT. 28.0 % (36.0-48.0); HEMOGLOBIN. 9.0 g/dL (12.0-16.0); LYMPHOCYTES % 8.7 % (20.0-50.0); MEAN PLATELET VOLUME 8.7 fl (7.4-10.4); MONOCYTES % 4.2 % (2.0-8.0); NEUTROPHILS % 86.9 % (40.0-76.0); PLATELET 384 x1000/uL (130-400); RED BLOOD CELL COUNT 3.40 mill/uL (4.2-5.4); RED CELL DISTRIBUTION WIDTH 16.3 % (11.6-14.6); UREA NITROGEN BLOOD 39 mg/dL (9-23)
[2025-02-10] MEDS ORDERED: LEVO-65 GT (10:36)
[2025-02-10] MEDS: LACTULOSE 20G/30ML UDC GT NR (10:43)
[2025-02-10] MEDS: LANSOPRAZOLE 30MG DR CAPSULE GT SCH (10:44)
[2025-02-10] MEDS: FUROSEMIDE 40MG/4ML VIAL IVP NR (10:44)
[2025-02-10] MEDS: HYDROCODONE/ACETAMINOPHEN 5/325MG TABLET PO PRN (10:46)
[2025-02-16] MEDS ORDERED: MIDO5TAB4 PO (14:46)
[2025-02-16] MEDS ORDERED: PANT40VI IV (14:46)
[2025-02-16] MEDS ORDERED: ASCO500T20 GT (14:46)
[2025-02-16] MEDS ORDERED: ZINC1CAP2 GT (14:46)
[2025-02-16] MEDS ORDERED: METH40VI35 IV (14:46)
== END 2025-02-10 17:02 | disposition home or self-care (01) | DRG 189 ==
LOC: ER 19:00 → 7WST 20:08 → ENRESERV 20:53 → 5EST 02-05 10:35
PROVIDERS: ADMIT Internal Medicine; ATTEND Internal Medicine
PROC: 5A09357 Assistance with Respiratory Ventilation, Less than 24 Consecutive Hours, Continuous Positive Airway Pressure (ICD-10-PCS; principal; 2025-02-05)
PROC: 5A09357 Assistance with Respiratory Ventilation, Less than 24 Consecutive Hours, Continuous Positive Airway Pressure (ICD-10-PCS; 2025-02-06)
DX: J96.01 Acute respiratory failure with hypoxia (principal); J18.9 Pneumonia, unspecified organism; L89.313 Pressure ulcer of right buttock, stage 3; L89.614 Pressure ulcer of right heel, stage 4; L89.624 Pressure ulcer of left heel, stage 4; L89.323 Pressure ulcer of left buttock, stage 3; L89.154 Pressure ulcer of sacral region, stage 4; E87.1 Hypo-osmolality and hyponatremia; F03.911 Unspecified dementia, unspecified severity, with agitation; R13.10 Dysphagia, unspecified; F03.93 Unspecified dementia, unspecified severity, with mood disturbance; F32.A Depression, unspecified; I11.0 Hypertensive heart disease with heart failure; I70.0 Atherosclerosis of aorta; E11.65 Type 2 diabetes mellitus with hyperglycemia; I50.9 Heart failure, unspecified; L22 Diaper dermatitis; L30.4 Erythema intertrigo; E87.6 Hypokalemia; M85.80 Other specified disorders of bone density and structure, unspecified site; R32 Unspecified urinary incontinence; T38.0X5A Adverse effect of glucocorticoids and synthetic analogues, initial encounter; Y92.89 Other specified places as the place of occurrence of the external cause; Z90.710 Acquired absence of both cervix and uterus; Z93.1 Gastrostomy status; Z74.01 Bed confinement status; Z79.899 Other long term (current) drug therapy; I25.2 Old myocardial infarction; Z88.0 Allergy status to penicillin; Z86.73 Personal history of transient ischemic attack (TIA), and cerebral infarction without residual deficits; Z99.81 Dependence on supplemental oxygen
CPT/HCPCS: 31720; 36415; 36600; 71045; 80048; 80053; 80061; 80076; 80202; 81003; 82375; 82533; 82550; 82805; 82962; 83036; 83605; 83735; 83930; 84132; 84145; 84300; 84439; 84443; 85025; 87449; 93005; 94070; 94640; 94660; 94664; 94760; 98960; 99291; A4606; A4615; J0456; J0692; J0696; J1650; J1815; J1938; J2919; J3373; J3480; J7030; J7626; P9041